=== PATIENT | female | born 1950 | race Caucasian/White ===

== ENCOUNTER 2016-10-09 11:35 | Outpatient (CLI) ==
[2014-01-31 00:14] VITALS: BMI 48.0
[2016-10-09 12:19] LABS: BILIRUBIN,URINE Negative (NEGATIVE); KETONES,URINE Negative (NEGATIVE); LEUKOCYTE ESTERASE ,URINE Negative (NEGATIVE); NITRITE,URINE Negative (NEGATIVE); PROTEIN,URINE Negative (NEGATIVE); URINE, BLOOD Trace-intact (NEGATIVE)
[2016-10-09 12:24] LABS: ADD URINE MICROSCOPIC YES
== END 2016-10-09 11:36 | disposition home or self-care (01) ==
LOC: LAB 11:35
PROVIDERS: ATTEND Emergency Medicine
DX: R39.15 Urgency of urination (principal)
CPT/HCPCS: 81001

== ENCOUNTER 2017-03-26 16:24 | Outpatient (CLI) ==
[2014-01-31 00:14] VITALS: BMI 48.0
[2017-03-26 16:40] LABS: BILIRUBIN,URINE Negative (NEGATIVE); KETONES,URINE Negative (NEGATIVE); LEUKOCYTE ESTERASE ,URINE Negative (NEGATIVE); NITRITE,URINE Negative (NEGATIVE); PH,URINE 5.5 (5-9); PROTEIN,URINE 1+ (NEGATIVE); URINE, BLOOD Negative (NEGATIVE)
[2017-03-26 16:46] LABS: ADD URINE MICROSCOPIC YES
== END 2017-03-26 16:25 | disposition home or self-care (01) ==
LOC: LAB 16:24
PROVIDERS: ATTEND Emergency Medicine
DX: R35.0 Frequency of micturition (principal)
CPT/HCPCS: 81001

== ENCOUNTER 2017-03-28 09:53 | Outpatient (CLI) ==
[2014-01-31 00:14] VITALS: BMI 48.0
--- NOTE | 2017-03-28 10:43 | CT ---
EXAM: CT of the abdomen pelvis without contrast History: Generalized abdominal pain. Comparison: CT abdomen 10/12/2008 Technique: Multiplanar CT images through the abdomen pelvis were obtained without the administratio n of IV contrast Findings: There is some motion artifact. Lung bases are free of consolidation. No acute osseous a bnormalities. Severe degenerate changes of the lumbar spine. Status post cholecystectomy. Calcified granulomas seen within the liver and spleen. There is atrop hy of the pancreas. No peripancreatic inflammation. 2.3 cm left adrenal adenoma. Right adrenal gl and is unremarkable. The appendix is normal. No renal stones and no hydronephrosis. No ureteral c alculi. No bowel obstruction. No bladder wall thickening. Uterus is not seen. Scattered colonic stool. Colonic diverticulosis. Inflammation and focal wall thickening of the proximal sigmoid colo n. No free air and no abscess. Impression: 1. Acute diverticulitis of the proximal sigmoid colon. No abscess. 2. Benign left adrenal adenoma. 3. Old granulomatous disease. 4. Severe degenerative changes of the lumbar spine.
== END 2017-03-28 09:54 | disposition home or self-care (01) ==
LOC: RAD 09:53
PROVIDERS: ATTEND Emergency Medicine
DX: R10.84 Generalized abdominal pain (principal)

== ENCOUNTER 2017-04-03 09:42 | Outpatient (CLI) ==
[2014-01-31 00:14] VITALS: BMI 48.0
[2017-04-03 10:18] LABS: BASOPHILS % (AUTO) 0.6 % (0.0-3.0); EOSINOPHILS # (AUTO) 0.1 K/ul (0.0-0.7); EOSINOPHILS % (AUTO) 1.9 % (0.0-7.0); HEMOGLOBIN 13.8 g/dl (12.0-16.0); IMMATURE GRANULOCYTE % (AUTO) 0.3 % (0.0-5.0); LYMPHOCYTES # (AUTO) 2.6 K/uL (0.60-3.4); LYMPHOCYTES % (AUTO) 35.4 (10.0-50.0); MEAN CORPUSCULAR HEMOGLOBIN 29.5 pg (27.0-31.0); MEAN CORPUSCULAR HGB CONC 32.9 (31.8-35.4); MEAN CORPUSCULAR VOLUME 89.7 fl (81.0-99.0); MONOCYTES # (AUTO) 0.5 K/uL (0.4-2.0); MONOCYTES % (AUTO) 6.7 (0-10); NEUTROPHILS % (AUTO) 55.1; PLATELET COUNT 249 10^3/uL (140-440); RED BLOOD COUNT 4.68 10^6/ul (4.20-5.40); WHITE BLOOD COUNT 7.21 K/ul (4.6-10.2)
[2017-04-03 11:05] LABS: ALBUMIN 3.6 g/dL (3.4-5.0); ALBUMIN/GLOBULIN RATIO 1.13; ANION GAP 13.3; BILIRUBIN,TOTAL 0.55 mg/dL (0.00-1.20); BUN/CREATININE RATIO 22.54; CALCIUM 9.7 mg/dL (8.2-10.2); CHOL/HDL RATIO 2.4 (4.5-5.5); CREATININE 1.02 mg/dL (0.60-1.30); POTASSIUM 4.3 mmol/L (3.5-5.10); TOTAL PROTEIN 6.8 g/dL (5.8-8.1)
== END 2017-04-03 09:43 | disposition home or self-care (01) ==
LOC: LAB 09:42
PROVIDERS: ATTEND Emergency Medicine
DX: E11.9 Type 2 diabetes mellitus without complications (principal); I10 Essential (primary) hypertension
CPT/HCPCS: 36415; 80053; 80061; 83036; 84443; 85025

== ENCOUNTER 2017-08-22 12:54 | Outpatient (CLI) | payer OTHER ==
[2014-01-31 00:14] VITALS: BMI 48.0
--- NOTE | 2017-08-24 08:44 | MAMMO ---
EXAM: Bilateral digital screening mammogram (2-D and 3-D) History: Screening Comparison: Bilateral mammogram 08/04/2016 Findings: MLO and CC views of bilateral breasts demonstrate a mildly fatty replaced breast parenchym a. CAD was reviewed by the radiologist. Tomosynthesis was performed. Stable benign bilateral breas t calcifications. There are no dominant masses, no suspicious microcalcifications and no architectur al distortions Impression: Benign stable mammogram. Recommend followup routine screening mammography in 1 year. BIRADS 2
== END 2017-08-22 12:55 | disposition home or self-care (01) ==
LOC: RAD 12:54
PROVIDERS: ATTEND Emergency Medicine
DX: Z12.31 Encounter for screening mammogram for malignant neoplasm of breast (principal)
CPT/HCPCS: 77067

== ENCOUNTER 2017-09-18 16:05 | Outpatient (CLI) ==
[2014-01-31 00:14] VITALS: BMI 48.0
== END 2017-09-18 16:06 | disposition home or self-care (01) ==
LOC: LAB 16:05
PROVIDERS: ATTEND Emergency Medicine
DX: E11.9 Type 2 diabetes mellitus without complications (principal); E78.5 Hyperlipidemia, unspecified; I10 Essential (primary) hypertension
CPT/HCPCS: 36415; 80053; 80061; 83036; 84443; 85025

== ENCOUNTER 2017-12-27 10:52 | Outpatient (CLI) | payer OTHER ==
[2014-01-31 00:14] VITALS: BMI 48.0
== END 2017-12-27 10:53 | disposition home or self-care (01) ==
LOC: RHC-LAB 10:52
PROVIDERS: ATTEND Emergency Medicine
DX: E11.9 Type 2 diabetes mellitus without complications (principal); I10 Essential (primary) hypertension; E78.5 Hyperlipidemia, unspecified; E66.9 Obesity, unspecified
CPT/HCPCS: 36415; 80053; 80061; 83036; 84443; 85025

== ENCOUNTER 2018-03-12 09:53 | Outpatient (CLI) ==
[2014-01-31 00:14] VITALS: BMI 48.0
== END 2018-03-12 09:54 | disposition home or self-care (01) ==
LOC: LAB 09:53
PROVIDERS: ATTEND Emergency Medicine
DX: E11.9 Type 2 diabetes mellitus without complications (principal); E78.5 Hyperlipidemia, unspecified; I10 Essential (primary) hypertension
CPT/HCPCS: 36415; 80053; 80061; 83036; 84443; 85025

== ENCOUNTER 2018-07-01 09:11 | Outpatient (CLI) | payer OTHER ==
[2014-01-31 00:14] VITALS: BMI 48.0
== END 2018-07-01 09:12 | disposition home or self-care (01) ==
LOC: LAB 09:11
PROVIDERS: ATTEND Family Medicine
DX: E11.9 Type 2 diabetes mellitus without complications (principal); E55.9 Vitamin D deficiency, unspecified; I10 Essential (primary) hypertension; Z86.39 Personal history of other endocrine, nutritional and metabolic disease
CPT/HCPCS: 36415; 80053; 82043; 82306; 83036

== ENCOUNTER 2020-09-09 16:30 | Inpatient (IN) ==
--- NOTE | 2020-09-09 17:11 | ED.PDOC ---
General ED Provider: Dr. AMRITA IGLESIAS Chief Complaint: Abnormal Labs Stated Complaint: Weakness, chronic diarrhea; Apparently had out patient lab in anticipation of knee surgery. She was called by Dr Panda offselma and advise her labs were abnormal and to go To ER. Dr Herring advised that orthopedic surgeon advised Her WBC count was elevated Time Seen by Physician: 17:00 Mode of Arrival: Ambulance Information Source: Patient Exam Limitations: Clinical condition Primary Care Provider: ROBERTO HERRING Nursing and Triage Documentation Reviewed and Agree: Yes Does patient meet sepsis criteria?: No System Inflammatory Response Syndrome: Not Applicable Sepsis Protocol: For patient's 13 years and over: Temp is 96.8 and below OR 101 and greater Pulse >90 BPM Resp >20/minute Acutely Altered Mental Status Are patient's symptoms suggestive of a new infection, such as: -Pneumonia -Skin, Soft Tissue -Endocarditis -UTI -Bone, Joint Infection -Implantable Device -Acute Abdominal Infection -Wound Infection -Meningitis -Blood Stream Catheter Infection -Unknown GI Complaint Exam Vomiting/Diarrhea Complaint/Exam Onset/Duration: several month of diarrhea Symptoms Are: Still present Episodes of Vomiting over last 24 Hours: 0 Episodes of Diarrhea Over Last 24 Hours: 2 Initial Severity: Moderate Current Severity: Mild Character of Diarrhea: Reports Malodorous Aggravating: Reports Food and Liquids Alleviating: Reports None Associated Signs and Symptoms: Reports Dizziness, Light-headedness and Melena Last Bowel Movement: Earlier today Abdominal Findings: Present Other (Tenderness) Differential Diagnoses: Dehydration, Viral Gastroenteritis and Pancreatitis Review of Systems Review Of Systems Constitutional: Reports No symptoms and Weakness Eyes: Reports No symptoms Ears, Nose, Mouth, Throat: Reports No symptoms Respiratory: Reports No symptoms Cardiac: Reports No symptoms GI: Reports Abdominal pain, Diarrhea, Poor appetite and Poor fluid intake : Reports No symptoms Musculoskeletal: Reports No symptoms Skin: Reports No symptoms Neurological: Reports No symptoms Endocrine: Reports No symptoms Hematologic/Lymphatic: Reports No symptoms All Other Systems: Reviewed and Negative [facility] Medical History (Updated 09/10/20 @ 08:04 by MEGGAN WINKLER) Arthritis Asthma Bronchitis Cataract Diabetes mellitus Hyperlipidemia Hypertension Irritable bowel syndrome Left breast lump Microalbuminuria Polycystic ovaries Family History FATHER Cancer MATERNAL GRANDMOTHER Cancer MATERNAL GRANDFATHER Cancer PATERNAL GRANDMOTHER Cerebrovascular accident Hypertension PATERNAL GRANDFATHER Hypertension Social History (Updated 09/09/20 @ 17:09 by MINI FRANKS RN) Smoking and tobacco status: Former smoker Surgical History (Updated 09/10/20 @ 08:04 by MEGGAN WINKLER) Cataract extraction and insertion of intraocular lens History of section History of hysterectomy History of joint surgery History of musculoskeletal system surgery History of oophorectomy History of surgery History of surgery on integumentary structure Status post cholecystectomy Status post hysterectomy Female Reproductive History Menstrual Hx Hysterectomy: Yes Hx Tubal Ligation: No Physical Exam Physical Exam Appearance: Reports Well-appearing, No pain distress and Obese Ill-appearing: Mild Pain Distress: Mild Eyes: Reports RENNY, EOMI, Conjunctiva clear, Conjunctiva inflammed and Conjunctiva pale ENT: Reports Ears normal, Nose normal and Oropharynx normal Neck: Supple Respiratory: Reports Airway patent, Breath sounds clear, Breath sounds equal and Breath sounds diminished Cardiovascular: Reports RRR GI/: Reports Soft, Tender and Bowel sounds hypoactive Musculoskeletal: Reports Normal strength, ROM intact, No edema and No calf tenderness Skin: Reports Warm and Dry Neurological: Reports Sensation intact, Motor intact, Reflexes intact, Cranial nerves intact, Alert and Oriented Psychiatric: Reports Affect appropriate, Mood appropriate and Anxious Interpretation EKG Interpretation Time of EKG #1: 18:07 Rate: Normal Rhythm: Sinus ST Segment: Other Interpretation: Non Specific ST abnormality/Prolonged QT Critical Care Note Critical Care Note Total Critical Care Time (mins): 0 Course Course Hematology/Chemistry: 09/11/20 04:50 09/11/20 04:50 Orders, Labs, Meds: Lab Review 09/09/20 09/09/20 09/09/20 10:00 17:32 17:32 WBC 14.33 H RBC 4.11 L Hgb 12.0 Hct 36.5 L MCV 88.8 MCH 29.2 MCHC 32.9 RDW Coeff of Patsy 12.4 Plt Count 474 H Immature Gran % (Auto) 0.8 Neut % (Auto) 69.0 Lymph % (Auto) 21.9 [place] % (Auto) 7.0 Eos % (Auto) 1.0 Baso % (Auto) 0.3 Neut # (Auto) 9.9 H Lymph # (Auto) 3.1 [place] # (Auto) 1.0 Eos # (Auto) 0.2 Baso # (Auto) 0.0 Immature Gran # (Auto) 0.1 ESR Sodium 127.6 L Potassium 3.95 Chloride 94.1 L Carbon Dioxide 19.7 L Anion Gap 17.75 BUN 54.6 H Creatinine 2.91 H Estimated GFR (MDRD) 16.00 BUN/Creatinine Ratio 18.76 Glucose 136.9 H Calcium 10.72 H Magnesium 1.56 L Total Bilirubin 0.47 AST 29.8 ALT 23.2 Alkaline Phosphatase 255.5 H Total Creatine Kinase 42.4 Total Protein 7.53 Albumin 3.60 Globulin 3.93 Albumin/Globulin Ratio 0.91 Amylase 45.0 Lipase 75.9 Urine Color Urine Clarity Urine pH Ur Specific [place] Urine Protein Urine Glucose (UA) Urine Ketones Urine Blood Urine Nitrite Urine Bilirubin Urine Urobilinogen Ur Leukocyte Esterase Urine Microscopic WBC Ur Squamous Epith Cells Urine Bacteria Adenovirus (PCR) Not detected B. pertussis DNA (PCR) Not detected B.parapertussis DNA PCR Not detected C. pneumoniae DNA (PCR) Not detected Coronavirus OC43 (PCR) Not detected Coronavirus HKU1 (PCR) Not detected Coronavirus 229E (PCR) Not detected Coronavirus NL63 (PCR) Not detected Human Metapneumovir PCR Not detected Influenza Type A (PCR) Not detected Influenza B (RT-PCR) Not detected M. pneumoniae (PCR) Not detected Parainfluenza 1 (PCR) Not detected Parainfluenza 2 (PCR) Not detected Parainfluenza 3 (PCR) Not detected Parainfluenza 4 (PCR) Not detected RSV (PCR) Not detected Entero/Rhino (PCR) Not detected SARS-CoV-2 (PCR) Not detected 09/09/20 09/09/20 17:32 18:30 WBC RBC Hgb Hct MCV MCH MCHC RDW Coeff of Patsy Plt Count Immature Gran % (Auto) Neut % (Auto) Lymph % (Auto) [place] % (Auto) Eos % (Auto) Baso % (Auto) Neut # (Auto) Lymph # (Auto) [place] # (Auto) Eos # (Auto) Baso # (Auto) Immature Gran # (Auto) ESR 92 H Sodium Potassium Chloride Carbon Dioxide Anion Gap BUN Creatinine Estimated GFR (MDRD) BUN/Creatinine Ratio Glucose Calcium Magnesium Total Bilirubin AST ALT Alkaline Phosphatase Total Creatine Kinase Total Protein Albumin Globulin Albumin/Globulin Ratio Amylase Lipase Urine Color Yellow Urine Clarity Clear Urine pH 5.0 Ur Specific [place] <=1.005 Urine Protein Negative Urine Glucose (UA) Trace H Urine Ketones Negative Urine Blood Trace-intact H Urine Nitrite Negative Urine Bilirubin Negative Urine Urobilinogen 0.2 Ur Leukocyte Esterase Negative Urine Microscopic WBC 2-5 Ur Squamous Epith Cells 0-2 Urine Bacteria Trace Adenovirus (PCR) B. pertussis DNA (PCR) B.parapertussis DNA PCR C. pneumoniae DNA (PCR) Coronavirus OC43 (PCR) Coronavirus HKU1 (PCR) Coronavirus 229E (PCR) Coronavirus NL63 (PCR) Human Metapneumovir PCR Influenza Type A (PCR) Influenza B (RT-PCR) M. pneumoniae (PCR) Parainfluenza 1 (PCR) Parainfluenza 2 (PCR) Parainfluenza 3 (PCR) Parainfluenza 4 (PCR) RSV (PCR) Entero/Rhino (PCR) SARS-CoV-2 (PCR) Orders Category Date Time Status ADMIT PATIENT INPATIENT .TO MEDSURG (MONITORED BED) ADMISSION 09/09/20 19:17 Active EKG-(ED ONLY) Stat CARDIO 09/09/20 17:11 Completed METERED DOSE INHALATION Routine CARDIO 09/09/20 19:06 Active ACTIVITY .Complete BR CARE 09/09/20 19:02 Active BLOOD GLUCOSE MONITORING 0630,1100,1700,2100 CARE 09/09/20 19:03 Active INTAKE & OUTPUT Q8HR CARE 09/09/20 19:02 Active INTAKE & OUTPUT Q8HR CARE 09/09/20 19:02 Completed TELEMETRY MONITORING TELE CARE 09/09/20 19:17 Active VITAL SIGNS Q4HR CARE 09/09/20 19:02 Completed VITAL SIGNS Q8HR CARE 09/09/20 19:02 Completed REGULAR DIET DIETARY 09/09/20 Breakfast Ordered IV [ED IV/MEDIPORT/POWERPORT] .ONCE EMERGENCY 09/09/20 19:00 Active AMYLASE Stat LAB 09/09/20 17:32 Completed CBC W/ AUTO DIFF DAILY@0600 LAB 09/10/20 04:45 Completed CBC W/ AUTO DIFF DAILY@0600 LAB 09/11/20 04:50 Completed CBC W/ AUTO DIFF Stat LAB 09/09/20 17:32 Completed COMPREHENSIVE METABOLIC PANEL DAILY@0600 LAB 09/10/20 04:45 Completed COMPREHENSIVE METABOLIC PANEL DAILY@0600 LAB 09/11/20 04:50 Completed COMPREHENSIVE METABOLIC PANEL Stat LAB 09/09/20 17:32 Completed CPK [CREATINE KINASE] Stat LAB 09/09/20 17:32 Completed ESR Stat LAB 09/09/20 17:32 Completed LIPASE Stat LAB 09/09/20 17:32 Completed MAGNESIUM Stat LAB 09/09/20 17:32 Completed OCCULT BLOOD, STOOL Stat LAB 09/09/20 19:17 Uncollected UA [URINALYSIS C & S IF INDICATED] Stat LAB 09/09/20 18:30 Completed 0.9 % Sodium Chloride [Saline Flush] MEDS 09/09/20 19:00 Active 1 syr IVF PRN PRN Albuterol Inhaler(with Spacer) [Ventolin Hfa (Per Puff- MEDS 09/09/20 19:05 Active with Spacer)] 1 puff IH TID PRN Albuterol Sulfate 0.042% Neb [Albuterol 0.042% Neb] MEDS 09/09/20 19:05 Active 1.25 mg NEB TID PRN Alprazolam [Xanax] MEDS 09/09/20 19:30 Active 0.5 mg PO BID Aspirin [Aspirin Chewable] MEDS 09/10/20 08:30 Active 81 mg PO DAILYWM Glipizide [Glucotrol] MEDS 09/09/20 21:00 Discontinued 10 mg PO BID Hydrocodone Bit/Acetaminophen [[place] 5-325] MEDS 09/09/20 19:00 Active 1 tab PO Q6H PRN L.rhamn A-191-L.ac-B.monica-B.john [Probiotic] MEDS 09/09/20 19:15 Discontinued 1 cap PO DAILY Losartan Potassium [Cozaar] MEDS 09/10/20 09:00 Active 100 mg PO DAILY Montelukast Sodium [Singulair] MEDS 09/10/20 09:00 Discontinued 10 mg PO DAILY Ondansetron HCl/Pf [Zofran 4 mg/2 ml] MEDS 09/09/20 19:00 Active 4 mg IVP Q6H PRN Sodium Chloride 0.9% [Sodium Chloride] 1,000 ml MEDS 09/09/20 19:00 Discontinued IV BOLUS Trazodone HCl [Desyrel] MEDS 09/09/20 21:00 Active 50 mg PO BEDTIME RESUSCITATION STATUS Routine OTHERS 09/09/20 19:[address] ABDOMEN/PELVIS WO CONTRAST Stat RADS 09/09/20 17:[address] CHEST W/O CONTRAST Stat RADS 09/09/20 17:21 Completed Medications Generic Name Dose Route Start Last Admin Trade Name Freq PRN Reason Stop Dose Admin Hydrocodone Bitart/Acetaminophen 1 tab 09/09/20 19:00 09/11/20 08:38 Hydrocodone Bit/Acetaminophen 5/325 Mg Tablet PO 1 tab Q6H PRN Administration Pain Albuterol Sulfate 1.25 mg 09/09/20 19:05 Albuterol Sulfate 0.042% Vial.Neb NEB TID PRN dyspnea Albuterol Sulfate 1 puff 09/09/20 19:05 Albuterol Sulfate (Ventolin Hfa) 18 Gm 1 Puff With Spacer IH TID PRN wheezing and dyspnea Alprazolam 0.5 mg 09/09/20 19:30 09/11/20 08:38 Alprazolam 0.5 Mg Tablet PO 0.5 mg BID YUDI Administration Aspirin 81 mg 09/10/20 08:30 09/11/20 08:38 Aspirin 81 Mg Tab.Chew PO 81 mg DAILYWM YUDI Administration Enoxaparin Sodium 30 mg 09/12/20 09:00 Enoxaparin Sodium 30 Mg/0.3 Ml Syr SUBCUT DAILY YUDI Glipizide 10 mg 09/10/20 08:30 09/11/20 08:38 Glipizide 5 Mg Tablet PO 10 mg BIDWM YUDI Administration Sodium Chloride 1,000 mls @ 125 mls/hr 09/09/20 22:00 09/10/20 22:08 Sodium Chloride IV 125 mls/hr .Q8H YUDI Administration CEFTRIAXONE/D5W 1 GM PREMIX 1 gm in 50 mls @ 75 mls/hr 09/10/20 09:00 09/11/20 08:45 Rocephin 1 Gm/50 Ml D5w IV 09/13/20 08:59 75 mls/hr DAILY YUDI Administration Insulin Human Regular 0 unit 09/09/20 21:45 09/10/20 20:53 Insulin Regular, Human 100 Unit/Ml (3ml) Vial SUBCUT 3 unit PRN PRN Administration Hyperglycemia Protocol Losartan Potassium 100 mg 09/10/20 09:00 09/11/20 08:38 Losartan Potassium 100 Mg Tablet PO 100 mg DAILY YUDI Administration Montelukast Sodium 10 mg 09/09/20 22:30 09/10/20 20:36 Montelukast Sodium 10 Mg Tablet PO 10 mg BEDTIME YUDI Administration Non-Formulary Medication 2 cap 09/11/20 09:00 09/11/20 08:39 L.Rhamn A-191-L.Ac-B.Monica-B.John [Probiotic] PO 2 cap DAILY YUDI Administration Ondansetron HCl 4 mg 09/09/20 19:00 Ondansetron Hcl/Pf 4 Mg/2 Ml Sdv IVP Q6H PRN Nausea / Vomiting Sodium Chloride 1 syr 09/09/20 19:00 0.9% Sodium Chloride 10 Ml Disp.Syrin IVF PRN PRN To flush IV Trazodone HCl 50 mg 09/09/20 21:00 09/10/20 20:36 Trazodone Hcl 50 Mg Tablet PO 50 mg BEDTIME YUDI Administration Discontinued Medications Generic Name Dose Route Start Last Admin Trade Name Freq PRN Reason Stop Dose Admin Enoxaparin Sodium 40 mg 09/10/20 09:00 09/11/20 08:39 Enoxaparin Sodium 40 Mg/0.4 Ml Syr SUBCUT 40 mg DAILY YUDI Administration Glipizide 10 mg 09/09/20 21:00 09/09/20 22:32 Glipizide 5 Mg Tablet PO 10 mg BID YUDI Administration Sodium Chloride 1,000 mls @ 1,000 mls/hr 09/09/20 19:00 09/09/20 20:14 Sodium Chloride IV 09/09/20 19:59 1,000 mls/hr BOLUS STA Administration Montelukast Sodium 10 mg 09/10/20 09:00 Montelukast Sodium 10 Mg Tablet PO DAILY YUDI Non-Formulary Medication 1 cap 09/09/20 19:15 09/10/20 10:09 L.Rhamn A-191-L.Ac-B.Monica-B.John [Probiotic] PO 1 cap DAILY YUDI Administration Vital Signs: Temp Pulse Resp BP Pulse Ox 09/09/20 16:36 97.6 F 75 18 114/54 L 99 Discharge Plan Discharge Patient Disposition: ADMITTED INPATIENT Discharge Problem: Chronic diarrhea, Laboratory test result abnormal, Acute kidney injury superimposed on chronic kidney disease, Dehydration, Bilateral knee pain ED Provider: AMRITA IGLESIAS Condition: Stable Physician Progress Note: []
[2020-09-09 17:39] LABS: BASOPHILS % (AUTO) 0.3 % (0.0-3.0); EOSINOPHILS # (AUTO) 0.2 K/ul (0.0-0.7); HEMATOCRIT 36.5 % (37.0-47.0); IMMATURE GRANULOCYTE # (AUTO) 0.1 (0.0-1.0); IMMATURE GRANULOCYTE % (AUTO) 0.8 % (0.0-5.0); LYMPHOCYTES # (AUTO) 3.1 K/uL (0.60-3.4); LYMPHOCYTES % (AUTO) 21.9 (10.0-50.0); MEAN CORPUSCULAR HEMOGLOBIN 29.2 pg (27.0-31.0); MEAN CORPUSCULAR HGB CONC 32.9 (31.8-35.4); MEAN CORPUSCULAR VOLUME 88.8 fl (81.0-99.0); NEUTROPHILS # (AUTO) 9.9 K/ul (2.0-6.9); PLATELET COUNT 474 10^3/uL (140-440); RDW COEFFICIENT OF VARIATION 12.4 % (11.6-14.8); RED BLOOD COUNT 4.11 10^6/ul (4.20-5.40); WHITE BLOOD COUNT 14.33 K/ul (4.6-10.2)
[2020-09-09 17:51] LABS: ALANINE AMINOTRANSFERASE 23.2 U/L (0-35); ALBUMIN 3.6 g/dL (3.5-5.0); ALKALINE PHOSPHATASE 255.5 U/L (53-141); ASPARTATE AMINO TRANSFERASE 29.8 U/L (14-36); BILIRUBIN,TOTAL 0.47 mg/dL (0.2-1.3); BLOOD UREA NITROGEN 54.6 mg/dL (7-17); CALCIUM 10.72 mg/dL (8.4-10.2); CARBON DIOXIDE 19.7 mmol/L (22-30.0); CHLORIDE 94.1 mmol/L (98-107); CREATINE KINASE 42.4 U/L (30-135); CREATININE 2.91 mg/dL (0.60-1.30); GLUCOSE 136.9 mg/dL (74-106); LIPASE 75.9 U/L (23-300); MAGNESIUM 1.56 mg/dL (1.6-2.3); POTASSIUM 3.95 mmol/L (3.5-5.1); SODIUM 127.6 mmol/L (134.5-145); TOTAL PROTEIN 7.53 g/dL (6.3-8.2)
[2020-09-09 18:15] LABS: ERYTHROCYTE SEDIMENTATION RATE 92 mm/hr (0-20)
--- NOTE | 2020-09-09 18:31 | CT ---
EXAM: CT chest without contrast HISTORY: Leukocytosis, fever TECHNIQUE: Multi-slice transaxial helical with coronal and sagittal reformed images CONTRAST: None COMPARISON: None FINDINGS: A hypodense nodule in the right thyroid lobe is 1.7 cm. The ascending aorta is minimally e ctatic to 31 mm. The aortic arch and descending aorta have normal caliber. The heart size is normal . No pericardial or pleural effusions. Minimal dependent atelectasis is noted. A calcified granulo ma is noted in the left lower lobe. No acute consolidation. No lymphadenopathy. Calcified granulomas are noted in the otherwise normal spleen. There is minimal focal fat in the lef t hepatic lobe adjacent to the falciform ligament. Additional calcified granulomas are noted in the liver. A left adrenal nodule is 2.6 cm with low attenuation. A simple cyst arises exophytically fro m the interpolar region of the left kidney. The pancreas is atrophic. The solid organs otherwise no rmal in their visualized portions of the upper abdomen. The gallbladder is surgically absent without biliary dilatation. The bones are free of suspicious osteolytic or osteoblastic lesions. A left reverse shoulder prosthe tic is in place. IMPRESSION: 1. No acute cardiopulmonary disease. 2. Hypodense nodule in the right thyroid lobe measuring 1.7 cm. [facility]. 3. Left reverse shoulder prosthetic in place.
--- NOTE | 2020-09-09 18:34 | CT ---
EXAM: CT abdomen and pelvis without contrast HISTORY: Leukocytosis, fever, abdominal pain, abdominal cramping TECHNIQUE: Multi-slice transaxial helical with coronal and sagittal reformed images COMPARISON: CT chest from FINDINGS: The lung bases are free of acute airspace or interstitial opacities. The heart size is nor mal. There are no pericardial or pleural effusions. There is minimal focal fat in the left hepatic lobe adjacent to the falciform ligament. No hepatic l esions are calcified granulomas are noted in the liver and spleen. The gallbladder is surgically abs ent without biliary dilatation. A left adrenal nodule is 2.6 cm. This has low attenuation. The right adrenal gland is normal. The pancreas maintains normal attenuation. No duodenal diverticula. There are multiple tiny probable hemorrhagic or proteinaceous bilateral renal cysts. No ureteral pel vicaliectasis. The nonopacified bladder is grossly normal. The uterus is surgically absent and ther e are no adnexal masses. The appendix is normal. Small bowel loops contain gas without distension. Diverticula arise from la rge bowel without CT evidence of diverticulitis. No lymphadenopathy or ascites. The bones are free of suspicious osteolytic or osteoblastic lesions. IMPRESSION: 1. Minimal focal fat in the left hepatic lobe. 2. Multiple probable bilateral hemorrhagic or proteinaceous renal cysts. 3. Left adrenal adenoma. 4. Old granulomas disease. 5. ASCVD. 6. Colonic diverticulosis without CT evidence of diverticulitis. 7. Normal appendix. Nonobstructive intestinal gas pattern.
[2020-09-09 18:41] LABS: BILIRUBIN,URINE Negative (NEGATIVE); CLARITY,URINE Clear (CLEAR); COLOR,URINE Yellow (YELLOW); GLUCOSE, URINE (UA) Trace (NEGATIVE); KETONES,URINE Negative (NEGATIVE); LEUKOCYTE ESTERASE ,URINE Negative (NEGATIVE); NITRITE,URINE Negative (NEGATIVE); PROTEIN,URINE Negative (NEGATIVE); URINE, BLOOD Trace-intact (NEGATIVE); UROBILINOGEN,URINE 0.2 (0.2)
[2020-09-09 18:45] LABS: BACTERIA,URINE TRACE (NOT PRESENT); SQUAMOUS EPITHELIAL CELL,UR 0-2 (0-5)
[2020-09-09] MEDS ORDERED: ZOFRAN 4 MG/2 ML IVP PRN (19:00)
[2020-09-09] MEDS ORDERED: SODIUM CHLORIDE 1,000 ML IV STA (19:00)
[2020-09-09] MEDS ORDERED: VENTOLIN HFA (PER PUFF-WITH SPACER) IH PRN (19:05)
[2020-09-09] MEDS ORDERED: ALBUTEROL 0.042% NEB NEB PRN (19:05)
[2020-09-09] MEDS: XANAX PO SCH ×2 (20:15→22:07)
[2020-09-09] MEDS ORDERED: GLUCOTROL PO SCH (21:00)
[2020-09-09] MEDS: DESYREL PO SCH (22:32)
[2020-09-09] MEDS: SINGULAIR PO SCH (22:33)
[2020-09-09] MEDS: SODIUM CHLORIDE 1,000 ML IV SCH (22:33)
[2020-09-09] MEDS: NORCO 5-325 PO PRN (22:39)
[2020-09-09 22:49] VITALS: BMI 38.7
[2020-09-10 05:14] LABS: BASOPHILS % (AUTO) 0.3 % (0.0-3.0); EOSINOPHILS # (AUTO) 0.1 K/ul (0.0-0.7); EOSINOPHILS % (AUTO) 1.4 % (0.0-7.0); HEMATOCRIT 31.5 % (37.0-47.0); HEMOGLOBIN 10.5 g/dl (12.0-16.0); IMMATURE GRANULOCYTE # (AUTO) 0.1 (0.0-1.0); IMMATURE GRANULOCYTE % (AUTO) 0.9 % (0.0-5.0); LYMPHOCYTES # (AUTO) 2.4 K/uL (0.60-3.4); LYMPHOCYTES % (AUTO) 23.2 (10.0-50.0); MEAN CORPUSCULAR HEMOGLOBIN 29.7 pg (27.0-31.0); MEAN CORPUSCULAR HGB CONC 33.3 (31.8-35.4); MONOCYTES # (AUTO) 0.9 K/uL (0.4-2.0); MONOCYTES % (AUTO) 8.9 (0-10); NEUTROPHILS # (AUTO) 6.8 K/ul (2.0-6.9); NEUTROPHILS % (AUTO) 65.3 % (42.2-75.2); PLATELET COUNT 385 10^3/uL (140-440); RDW COEFFICIENT OF VARIATION 12.4 % (11.6-14.8); RED BLOOD COUNT 3.54 10^6/ul (4.20-5.40); WHITE BLOOD COUNT 10.33 K/ul (4.6-10.2)
[2020-09-10 05:33] LABS: ALANINE AMINOTRANSFERASE 18.4 U/L (0-35); ALBUMIN 3.02 g/dL (3.5-5.0); ALKALINE PHOSPHATASE 202.4 U/L (53-141); ASPARTATE AMINO TRANSFERASE 26.3 U/L (14-36); BILIRUBIN,TOTAL 0.4 mg/dL (0.2-1.3); CALCIUM 9.88 mg/dL (8.4-10.2); CARBON DIOXIDE 18.7 mmol/L (22-30.0); CHLORIDE 98.6 mmol/L (98-107); CREATININE 2.9 mg/dL (0.60-1.30); POTASSIUM 3.52 mmol/L (3.5-5.1); SODIUM 129.6 mmol/L (134.5-145); TOTAL PROTEIN 6.62 g/dL (6.3-8.2)
[2020-09-10] MEDS: SODIUM CHLORIDE 1,000 ML IV SCH ×3 (05:51→22:08)
[2020-09-10] MEDS: [UNRECOGNIZED DRUG - OTHER] PO SCH ×2 (07:57→10:09)
[2020-09-10] MEDS ORDERED: JARDIANCE PO SCH (09:00)
[2020-09-10] MEDS ORDERED: MOBIC PO SCH (09:00)
[2020-09-10] MEDS ORDERED: SINGULAIR PO SCH (09:00)
[2020-09-10] MEDS: XANAX PO SCH ×2 (09:34→20:36)
[2020-09-10] MEDS: NORCO 5-325 PO PRN ×2 (09:34→18:10)
[2020-09-10] MEDS: ROCEPHIN 1 GM/50 ML D5W 1 GM/50 ML BAG IV SCH (09:34)
[2020-09-10] MEDS: COZAAR PO SCH (09:34)
[2020-09-10] MEDS: GLUCOTROL PO SCH ×2 (09:35→18:08)
[2020-09-10] MEDS: ASPIRIN CHEWABLE PO SCH (09:35)
[2020-09-10] MEDS: LOVENOX SUBCUT SCH (09:42)
--- NOTE | 2020-09-10 09:47 | PCM.PROG ---
Attending Provider: ATTENDING PROVIDER: Dr. ROBERTO SIU DATE OF SERVICE: 09/10/20 SUBJECTIVE: This 70 year old /WHITE F was hospitalized 09/09/20 with abdominal discomfort, diarrhea, dehydration and abnormal labs that were done for Preop by Dr. Garcia which were reported to me and advised to go to ER. The patient has acute renal failure. REVIEW OF SYSTEMS: CONSTITUTIONAL: No night sweats. No fatigue, malaise, lethargy. No fever or chills. HEENT: Eyes: No visual changes. No eye pain. No eye discharge. ENT: No runny nose. No epistaxis. No sinus pain. No odynophagia. No congestion. RESPIRATORY: No cough, no congestion. No hemoptysis. No shortness of breath. CARDIOVASCULAR: No angina symptoms. No CHF symptoms. No atypical chest pain for CAD. No palpitations. No orthopnea.. GASTROINTESTINAL: Abdominal discomfort. No nausea or vomiting. Diarrhea. No hematemesis. No hematochezia. Weight loss. GENITOURINARY: No urgency. No frequency. No dysuria. No hematuria. No obstructive symptoms. No discharge. No pain. No significant abnormal bleeding. MUSCULOSKELETAL: No musculoskeletal pain; no joint swelling. Moderate to severe right knee pain where she is not able to transfer and requires help for past several weeks. The patient has self directed care. Very poor on followups and recommendations. NEUROLOGICAL: Awake, alert, oriented to time, place and person. No headache. No neck pain. No syncope. No seizures. No dizziness. PSYCHIATRIC: Not anxious. No depression. No suicidal thoughts. No homicidal thoughts. SKIN: No rash. No lesions. No wounds. ENDOCRINE: No unexplained weight loss. No weight gain. HEMATOLOGIC/LYMPHATIC: No anemia. No purpura. No petechiae. No prolonged or excessive bleeding. No palpable lymph nodes. PHYSICAL EXAMINATION: GENERAL: The patient is awake, alert and oriented, lying in bed in no distress. VITAL SIGNS: Temperature 98 F, Pulse 78, Respiratory Rate 18, BP 108/61, Pulse Ox 94% HEENT: Head normocephalic, atraumatic. Eyes: Extraocular muscles are intact. Pupils are equal, round and reactive to light and accommodation. Ears: No lesions. Nose appeared normal. Throat: No exudate or erythema. NECK: Supple. No JVD, no carotid bruit. No lymphadenopathy or thyromegaly. LUNGS: Clear to auscultation. Percussion note normal. Chest symmetrical. HEART: S1, S2, no S3. No murmurs. No cyanosis or clubbing. No ascites. Pulses: Dorsalis pedis and posterior tibial pulses +1 to +2 both sides. ABDOMEN: Soft. Non-tender. Bowel sounds active. No CVA tenderness. No mass felt. EXTREMITIES: No edema. Full range of motion of all extremities, equal. NEUROLOGIC: No focal deficit. Cranial nerves II through XII are grossly intact. No headache, no double vision or headache. SKIN: Warm and dry. Intact. Turgor-Better than yesterday described by the ER doctor LYMPHATIC: No palpable lymph nodes/no lymphedema. MUSCULOSKELETAL: Normal joints with no swelling. Muscle tone is normal. LAB REVIEW: 09/10/20 04:45 09/10/20 04:45 09/10/20 04:45: Sodium 129.6 L, Potassium 3.52, Chloride 98.6, Carbon Dioxide 18.7 L, Anion Gap 15.82, BUN 53.0 H, Creatinine 2.90 H, Estimated GFR (MDRD) 16.00, BUN/Creatinine Ratio 18.27, Glucose 110.0 H, Calcium 9.88, Total Bilirubin 0.40, AST 26.3, ALT 18.4, Alkaline Phosphatase 202.4 H D, Total Protein 6.62, Albumin 3.02 L, Globulin 3.60, Albumin/Globulin Ratio 0.83 09/10/20 04:45: WBC 10.33 H, RBC 3.54 L, Hgb 10.5 L, Hct 31.5 L, MCV 89.0, MCH 29.7, MCHC 33.3, RDW Coeff of Patsy 12.4, Plt Count 385, Immature Gran % (Auto) 0.9, Neut % (Auto) 65.3, Lymph % (Auto) 23.2, [place] % (Auto) 8.9, Eos % (Auto) 1.4, Baso % (Auto) 0.3, Neut # (Auto) 6.8, Lymph # (Auto) 2.4, [place] # (Auto) 0.9, Eos # (Auto) 0.1, Baso # (Auto) 0.0, Immature Gran # (Auto) 0.1 09/09/20 22:15: Puncture Site Rb, Base Excess -5.6 L, O2 Saturation 94.9, ABG pH 7.40, ABG pCO2 31.0 L, ABG pO2 75.0 L, ABG HCO3 19.2 L, ABG Total CO2 20.2, Reuben Test +, Hemoglobin 1.4, Oxyhemoglobin 92.0 L, Carboxyhemoglobin 2.6 H, Total Hemoglobin 19.0 H, FiO2 % 21.0 09/09/20 18:30: Urine Color Yellow, Urine Clarity Clear, Urine pH 5.0, Ur Specific [place] <=1.005, Urine Protein Negative, Urine Glucose (UA) Trace H, Urine Ketones Negative, Urine Blood Trace-intact H, Urine Nitrite Negative, Urine Bilirubin Negative, Urine Urobilinogen 0.2, Ur Leukocyte Esterase Negative, Urine Microscopic WBC 2-5, Ur Squamous Epith Cells 0-2, Urine Bacteria Trace 09/09/20 17:32: ESR 92 H 09/09/20 17:32: Sodium 127.6 L, Potassium 3.95, Chloride 94.1 L, Carbon Dioxide 19.7 L, Anion Gap 17.75, BUN 54.6 H, Creatinine 2.91 H, Estimated GFR (MDRD) 16. 00, BUN/Creatinine Ratio 18.76, Glucose 136.9 H, Calcium 10.72 H, Magnesium 1.56 L, Total Bilirubin 0.47, AST 29.8, ALT 23.2, Alkaline Phosphatase 255.5 H, Total Creatine Kinase 42.4, Total Protein 7.53, Albumin 3.60, Globulin 3.93, Albumin/Globulin Ratio 0.91, Amylase 45.0, Lipase 75.9 09/09/20 17:32: WBC 14.33 H, RBC 4.11 L, Hgb 12.0, Hct 36.5 L, MCV 88.8, MCH 29.2, MCHC 32.9, RDW Coeff of [place]atsy 12.4, Plt Count 474 H, Immature Gran % (Auto) 0.8, Neut % (Auto) 69.0, Lymph % (Auto) 21.9, [place] % (Auto) 7.0, Eos % (Auto) 1.0, Baso % (Auto) 0.3, Neut # (Auto) 9.9 H, Lymph # (Auto) 3.1, [place] # (Auto) 1.0, Eos # (Auto) 0.2, Baso # (Auto) 0.0, Immature Gran # (Auto) 0.1 09/09/20 10:00: Adenovirus (PCR) Not detected, B. pertussis DNA (PCR) Not detec matt, B.parapertussis DNA PCR Not detected, C. pneumoniae DNA (PCR) Not detected, Coronavirus OC43 (PCR) Not detected, Coronavirus HKU1 (PCR) Not detected, Coronavirus 229E (PCR) Not detected, Coronavirus NL63 (PCR) Not detected, Human Metapneumovir PCR Not detected, Influenza Type A (PCR) Not detected, Influenza B (RT-PCR) Not detected, M. pneumoniae (PCR) Not detected, Parainfluenza 1 (PCR) Not detected, Parainfluenza 2 (PCR) Not detected, Parainfluenza 3 (PCR) Not detected, Parainfluenza 4 (PCR) Not detected, RSV (PCR) Not detected, Entero/Rhino (PCR) Not detected, SARS-CoV-2 (PCR) Not detected ASSESSMENT: Please see below. 1. Acute renal failure PLAN: 1. Creatinine and BUN showed slight improvement. Hgb dropped from hemodiluation 3. Discontinue Metformin and Ozempic 3. Normal saline to be at 125cc an hour 4. No evidence of fluid overload 5. Cardiovascular status is stable 6. Monitor CBC and CMP , hgb may drop further 7. Lovenox 40mg 8. Compliance discussed with patient 9. The patient is already started on Rocephin 1 gram 10.Check lactic acid level and Procalcitonin CONDITION: Stable. Plan and coordination of the patient's care discussed in the presence of [employer] Decorator and nurse. SCRIBED BY: MEGGAN WINKLER Golf Professional scribed while in presence of service performed by Dr. ROBERTO SIU on 09/10/20 ([id number])
[2020-09-10] MEDS: HUMULIN R SUBCUT PRN ×2 (12:03→20:53)
--- NOTE | 2020-09-10 13:42 | PN ---
DATE OF SERVICE: 09/09/2020 ADMIT NOTE SUBJECTIVE: 70 year old white female was advised to go to the emergency room after I talked to Dr. Garcia on the phone. He was concerned about her labs. While in the emergency room she had repeat labs which showed acute renal failure. She has been diarrhea and abdominal discomfort with weight loss which is partly responsible from Ozempic. REVIEW OF SYSTEMS: CONSTITUTIONAL: No night sweats. No fatigue, malaise, lethargy. No fever or chills. HEENT: Eyes: No visual changes. No eye pain. No eye discharge. ENT: No runny nose. No epistaxis. No sinus pain. No sore throat. No odynophagia. No congestion. RESPIRATORY: No cough, no congestion. No hemoptysis. No shortness of breath. CARDIOVASCULAR: No angina symptoms. No CHF symptoms. No atypical chest pain for CAD. No palpitations. No PND. No orthopnea. GASTROINTESTINAL: No abdominal pain. No nausea or vomiting. No diarrhea or constipation. No hematemesis. No hematochezia. GENITOURINARY: No urgency. No frequency. No dysuria. No hematuria. No obstructive symptoms. No discharge. No pain. No significant abnormal bleeding. MUSCULOSKELETAL: No musculoskeletal pain; no joint swelling. NEUROLOGICAL: No headache. No neck pain. No syncope. No seizures. No dizziness. PSYCHIATRIC: Not anxious. No depression. No suicidal thoughts. No homicidal thoughts. SKIN: No rash. No lesions. No wounds. ENDOCRINE: No unexplained weight loss. No weight gain. HEMATOLOGIC/LYMPHATIC: No anemia. No purpura. No petechiae. No prolonged or excessive bleeding. No palpable lymph nodes. PHYSICAL EXAMINATION: HEENT: Head normocephalic, atraumatic. Eyes: Extraocular muscles are intact. Pupils are equal, round and reactive to light and accommodation. Ears: No lesions. Nose appeared normal. Throat: No exudate or erythema. NECK: Supple. No JVD, no carotid bruit. No lymphadenopathy or thyromegaly. LUNGS: Clear to auscultation. Percussion note normal. Chest symmetrical. HEART: S1, S2, no S3. No murmurs. No cyanosis or clubbing. No ascites. Pulses: Dorsalis pedis and posterior tibial pulses +1 to +2 bilaterally. ABDOMEN: Soft. Nontender. Bowel sounds active. No CVA tenderness. No mass felt. EXTREMITIES: No edema. Full range of motion of all extremities, equal. NEUROLOGIC: No focal deficit. Cranial nerves II through XII are grossly intact. No headache, no double vision or headache. SKIN: Not dry. Intact. Turgor - Poor LYMPHATIC: No palpable lymph nodes/no lymphedema. MUSCULOSKELETAL: Normal joints with no swelling. Muscle tone is normal. LABS: Creatinine 2.9, BUN 54, WBC 14,000. U/A was practically unremarkable. CT scan of the chest and abdomen didn't show any acute findings. ASSESSMENT: 1. Acute renal failure likely combination of Ozempic and continuation of Metformin with viral syndrome probably creating dehydration with history of diabetes PLAN: 1. Give IV fluids 2. Discontinue Ozempic and Metformin CONDITION: Stable. TIME SPENT: More than 30 minutes. Plan and coordination of the patient's care discussed in the presence of nurse. DARCY
--- NOTE | 2020-09-10 14:07 | HP ---
DATE OF SERVICE: 09/09/2020 REASON FOR HOSPITALIZATION: Acute renal failure HISTORY OF PRESENT ILLNESS: 70 year old white female was instructed to go to the emergency room as her labs that were done preop with Dr. Garcia, orthopedic surgeon, were abnormal. He called and discussed. The patient on arrival at the emergency room complained of weakness, chronic diarrhea with duration of symptoms 4-5 weeks. The patient's labs were done. COVID was negative and sodium 127, creatinine 2.9, BUN 54 with GFR 16 indicating that the patient was in acute renal failure. The patient's U/A was negative for any leukocyte esterase. CT scan of the chest and CT scan of the abdomen were unremarkable. REVIEW OF SYSTEMS: CONSTITUTIONAL: No night sweats. No fever or chills. Weakness and fatigue. HEENT: Eyes: No visual changes. No eye pain. No eye discharge. ENT: No runny nose. No epistaxis. No sinus pain. No sore throat. No odynophagia. No ear pain. No congestion. RESPIRATORY: No cough, no congestion. No hemoptysis. No shortness of breath. CARDIOVASCULAR: No angina symptoms. No CHF symptoms. No atypical chest pain for CAD. No palpitations. No PND. No orthopnea. GASTROINTESTINAL: Mild abdominal discomfort. Nausea. diarrhea duration three weeks with 30 pound weight loss. No hematemesis. No hematochezia. Poor appetite. GENITOURINARY: No urgency. No frequency. No dysuria. No hematuria. No obstructive symptoms. No discharge. No pain. No significant abnormal bleeding. MUSCULOSKELETAL: No musculoskeletal pain. No joint swelling. No arthritis. Severe pain in the right knee, arthritic type for several months to walk. NEUROLOGICAL: No headache. No neck pain. No syncope. No seizures. No dizziness. PSYCHIATRIC: Not anxious. No depression. No suicidal thoughts. No homicidal thoughts. SKIN: No rash. No lesions. No wounds. ENDOCRINE: No unexplained weight loss. No weight gain. HEMATOLOGIC/LYMPHATIC: No anemia. No purpura. No petechiae. No prolonged or excessive bleeding. No palpable lymph nodes. PERSONAL/FAMILY/SOCIAL HISTORY: The patient is and lives with the . Unable to do activities of daily living lately because of severe osteoarthritic problems with knee. Non smoker. No alcohol abuse. 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 MEDICATIONS: Zyrtec [place] fatty acids Albuterol inhaler Jardiance Metformin Aspirin Losartan Pantoprazole Xanax Glipizide Hydrochlorothiazide Hydrocodone Meloxicam Metformin Simvastatin Trazodone Flagyl ALLERGIES: Codeine PHYSICAL EXAMINATION: GENERAL: The patient is oriented to time, place and person. VITAL SIGNS: Temperature 98.4, pulse 80, respiratory rate 15, blood pressure 130/70, oxygen saturation 97% on room air. HEENT: Head normocephalic, atraumatic. Eyes: Extraocular muscles are intact. Pupils are equal, round and reactive to light and accommodation. Ears: No lesions. Nose appeared normal. Throat: No exudate or erythema. NECK: Supple. No JVD, no carotid bruit. No lymphadenopathy or thyromegaly. LUNGS: Clear to auscultation. Percussion note normal. Chest symmetrical. HEART: S1, S2, no S3. No murmur. No cyanosis or clubbing. No ascites. Pulses: Dorsalis pedis and posterior tibial pulses +1 to +2 bilaterally. ABDOMEN: Soft. Nontender. Bowel sounds active. No CVA tenderness. No mass felt. EXTREMITIES: No edema. Full range of motion of all extremities, equal. NEUROLOGIC: No focal deficit. Cranial nerves II through XII are grossly intact. No headache, no double vision or headache. SKIN: Dry. Intact. Turgor - normal. Mucus membrane dry. LYMPHATIC: No palpable lymph nodes/no lymphedema. MUSCULOSKELETAL: Normal joints with no swelling. Muscle tone is normal. LABS: Sodium 127, creatinine 2.9, BUN 54. Alkaline phosphatase 255, hgb 12, hct 36, WBC 14,000 with normal differential. ABG pH 7.4, pO2 75, pCO2 31. Oxygen saturation 94%. PCR COVID test negative. CT scan of the abdomen and chest unremarkable and no acute findings. ASSESSMENT: 1. Acute renal failure likely cause combination of Meloxicam, nonsteroidal antiinflammatory with Ozempic and Metformin causing abdominal discomfort, diarrhea, and nausea 2. History of diabetes mellitus 3. Morbid obesity with having BMI of 45 4. Dyslipidemia 5. History of hypertension 6. Metabolic syndrome 7. Generalized anxiety disorder 8. Status post right knee replacement 9. Status post left shoulder replacement 10.History of asthmatic bronchitis 11.Left foot surgery, left bunionectomy all done by Dr. Rangel 12.Noncompliance of lifestyle and recommendations PLAN: 1. IV fluids 1000cc normal saline to be infused 125cc per hour 2. Watch for fluid overload 3. Telemetry and routine telemetry orders which will be included as serial EKGS and cardiac markers with oximetry telemetry monitoring 4. CBC and CMP to monitor kidney functions and liver functions 5. Continue Meloxicam, Simvastatin, Metformin and Ozempic 6. Protonix 40mg PO daily 7. Regular diet 8. Sliding scale with insulin coverage for hyperglycemia 9. Rocephin 1 gram IV 10.Education carried out about patient's multiple medical problems she has and having renal failure with mild metabolic acidosis. It is to be noted that the patient's A1c was 7.7 on 06/11/2020 with hgb of 10.5 and hct of 48. The patient's hgb now is 10 likely cause could be from Meloxicam or gastritis. No evidence of active GI bleed at present time. CONDITION: Stable. CC: Dr. Garcia TIME SPENT: More than 70 minutes. MTDD
[2020-09-10] MEDS: SINGULAIR PO SCH (20:36)
[2020-09-10] MEDS: DESYREL PO SCH (20:36)
[2020-09-11] MEDS: NORCO 5-325 PO PRN ×4 (00:15→23:36)
[2020-09-11 05:10] LABS: BASOPHILS % (AUTO) 0.2 % (0.0-3.0); EOSINOPHILS # (AUTO) 0.1 K/ul (0.0-0.7); EOSINOPHILS % (AUTO) 1.7 % (0.0-7.0); IMMATURE GRANULOCYTE # (AUTO) 0.1 (0.0-1.0); IMMATURE GRANULOCYTE % (AUTO) 0.9 % (0.0-5.0); LYMPHOCYTES # (AUTO) 1.9 K/uL (0.60-3.4); LYMPHOCYTES % (AUTO) 23.2 (10.0-50.0); MEAN CORPUSCULAR HEMOGLOBIN 29.7 pg (27.0-31.0); MEAN CORPUSCULAR HGB CONC 33.3 (31.8-35.4); MONOCYTES # (AUTO) 0.8 K/uL (0.4-2.0); MONOCYTES % (AUTO) 9.7 (0-10); NEUTROPHILS # (AUTO) 5.2 K/ul (2.0-6.9); NEUTROPHILS % (AUTO) 64.3 % (42.2-75.2); PLATELET COUNT 375 10^3/uL (140-440); RDW COEFFICIENT OF VARIATION 12.6 % (11.6-14.8); RED BLOOD COUNT 3.37 10^6/ul (4.20-5.40); WHITE BLOOD COUNT 8.02 K/ul (4.6-10.2)
[2020-09-11 05:27] LABS: ALANINE AMINOTRANSFERASE 15.4 U/L (0-35); ALBUMIN 2.84 g/dL (3.5-5.0); ALKALINE PHOSPHATASE 171.5 U/L (53-141); ASPARTATE AMINO TRANSFERASE 25.8 U/L (14-36); BILIRUBIN,TOTAL 0.33 mg/dL (0.2-1.3); CALCIUM 9.48 mg/dL (8.4-10.2); CARBON DIOXIDE 19.4 mmol/L (22-30.0); CREATININE 3.01 mg/dL (0.60-1.30); GLUCOSE 122.8 mg/dL (74-106); POTASSIUM 3.67 mmol/L (3.5-5.1); SODIUM 133.1 mmol/L (134.5-145); TOTAL PROTEIN 6.33 g/dL (6.3-8.2)
[2020-09-11] MEDS: ASPIRIN CHEWABLE PO SCH (08:38)
[2020-09-11] MEDS: COZAAR PO SCH (08:38)
[2020-09-11] MEDS: GLUCOTROL PO SCH (08:38)
[2020-09-11] MEDS: XANAX PO SCH ×2 (08:38→20:37)
[2020-09-11] MEDS: LOVENOX SUBCUT SCH (08:39)
[2020-09-11] MEDS: [UNRECOGNIZED DRUG - OTHER] PO SCH (08:39)
[2020-09-11] MEDS: ROCEPHIN 1 GM/50 ML D5W 1 GM/50 ML BAG IV SCH (08:45)
[2020-09-11] MEDS: HUMULIN R SUBCUT PRN ×3 (11:12→20:35)
[2020-09-11] MEDS: SODIUM CHLORIDE 1,000 ML IV SCH ×3 (12:37→16:30)
--- NOTE | 2020-09-11 13:33 | DI ---
EXAM: Radiographs, left wrist HISTORY: Left wrist pain. COMPARISON: None. TECHNIQUE: Three views. FINDINGS: Bone mineralization is decreased. There is no fracture or dislocation. Osteoarthritic ch anges, moderate to severe at the first carpal metacarpal joint. No focal soft tissue abnormality det ected. IMPRESSION: No fracture or dislocation.
[2020-09-11] MEDS: PROTONIX PO SCH ×2 (14:00→17:50)
[2020-09-11] MEDS: DESYREL PO SCH (20:37)
[2020-09-11] MEDS: SINGULAIR PO SCH (20:37)
[2020-09-12 05:16] LABS: BASOPHILS % (AUTO) 0.5 % (0.0-3.0); EOSINOPHILS # (AUTO) 0.1 K/ul (0.0-0.7); EOSINOPHILS % (AUTO) 1.7 % (0.0-7.0); HEMATOCRIT 33.8 % (37.0-47.0); HEMOGLOBIN 10.6 g/dl (12.0-16.0); IMMATURE GRANULOCYTE % (AUTO) 0.5 % (0.0-5.0); LYMPHOCYTES # (AUTO) 2.2 K/uL (0.60-3.4); LYMPHOCYTES % (AUTO) 26.7 (10.0-50.0); MEAN CORPUSCULAR HEMOGLOBIN 29.9 pg (27.0-31.0); MEAN CORPUSCULAR HGB CONC 31.4 (31.8-35.4); MEAN CORPUSCULAR VOLUME 95.2 fl (81.0-99.0); MONOCYTES # (AUTO) 0.8 K/uL (0.4-2.0); MONOCYTES % (AUTO) 9.9 (0-10); NEUTROPHILS # (AUTO) 5.1 K/ul (2.0-6.9); NEUTROPHILS % (AUTO) 60.7 % (42.2-75.2); PLATELET COUNT 289 10^3/uL (140-440); RDW COEFFICIENT OF VARIATION 13.3 % (11.6-14.8); RED BLOOD COUNT 3.55 10^6/ul (4.20-5.40); WHITE BLOOD COUNT 8.36 K/ul (4.6-10.2)
[2020-09-12 05:43] LABS: ALANINE AMINOTRANSFERASE 16.2 U/L (0-35); ALBUMIN 2.8 g/dL (3.5-5.0); ALKALINE PHOSPHATASE 160.9 U/L (53-141); ASPARTATE AMINO TRANSFERASE 29.2 U/L (14-36); BILIRUBIN,TOTAL 0.31 mg/dL (0.2-1.3); CALCIUM 9.64 mg/dL (8.4-10.2); CARBON DIOXIDE 19.9 mmol/L (22-30.0); CHLORIDE 109.5 mmol/L (98-107); CREATININE 1.6 mg/dL (0.60-1.30); GLUCOSE 152.5 mg/dL (74-106); POTASSIUM 3.96 mmol/L (3.5-5.1); SODIUM 134.9 mmol/L (134.5-145); TOTAL PROTEIN 6.27 g/dL (6.3-8.2)
[2020-09-12] MEDS: PROTONIX PO SCH ×2 (05:47→16:44)
[2020-09-12] MEDS: SODIUM CHLORIDE 1,000 ML IV SCH ×3 (05:48→16:49)
[2020-09-12] MEDS: HUMULIN R SUBCUT PRN ×4 (06:22→20:48)
[2020-09-12] MEDS ORDERED: LOVENOX SUBCUT SCH (09:00)
[2020-09-12] MEDS: XANAX PO SCH ×2 (09:18→20:47)
[2020-09-12] MEDS: NORCO 5-325 PO PRN ×3 (09:18→21:49)
[2020-09-12] MEDS: ASPIRIN CHEWABLE PO SCH (09:18)
[2020-09-12] MEDS: ROCEPHIN 1 GM/50 ML D5W 1 GM/50 ML BAG IV SCH (09:18)
[2020-09-12] MEDS: [UNRECOGNIZED DRUG - OTHER] PO SCH (09:18)
[2020-09-12] MEDS: COZAAR PO SCH (09:18)
[2020-09-12] MEDS: DULCOLAX PO SCH (16:44)
[2020-09-12] MEDS: SINGULAIR PO SCH (20:47)
[2020-09-12] MEDS: DESYREL PO SCH (20:47)
[2020-09-13] MEDS: NORCO 5-325 PO PRN ×3 (04:42→21:42)
[2020-09-13 05:32] LABS: BASOPHILS % (AUTO) 0.3 % (0.0-3.0); EOSINOPHILS # (AUTO) 0.2 K/ul (0.0-0.7); EOSINOPHILS % (AUTO) 1.9 % (0.0-7.0); HEMATOCRIT 30.7 % (37.0-47.0); IMMATURE GRANULOCYTE % (AUTO) 0.5 % (0.0-5.0); LYMPHOCYTES # (AUTO) 2.3 K/uL (0.60-3.4); LYMPHOCYTES % (AUTO) 28.7 (10.0-50.0); MEAN CORPUSCULAR HEMOGLOBIN 29.5 pg (27.0-31.0); MEAN CORPUSCULAR HGB CONC 32.6 (31.8-35.4); MEAN CORPUSCULAR VOLUME 90.6 fl (81.0-99.0); MONOCYTES # (AUTO) 0.6 K/uL (0.4-2.0); MONOCYTES % (AUTO) 7.8 (0-10); NEUTROPHILS # (AUTO) 4.9 K/ul (2.0-6.9); NEUTROPHILS % (AUTO) 60.8 % (42.2-75.2); PLATELET COUNT 382 10^3/uL (140-440); RED BLOOD COUNT 3.39 10^6/ul (4.20-5.40); WHITE BLOOD COUNT 7.97 K/ul (4.6-10.2)
[2020-09-13 05:43] LABS: ALANINE AMINOTRANSFERASE 17.1 U/L (0-35); ALBUMIN 2.91 g/dL (3.5-5.0); ALKALINE PHOSPHATASE 166.8 U/L (53-141); BILIRUBIN,TOTAL 0.34 mg/dL (0.2-1.3); BLOOD UREA NITROGEN 21.6 mg/dL (7-17); CALCIUM 9.84 mg/dL (8.4-10.2); CARBON DIOXIDE 22.8 mmol/L (22-30.0); CHLORIDE 108.1 mmol/L (98-107); CREATININE 0.94 mg/dL (0.60-1.30); GLUCOSE 169.8 mg/dL (74-106); POTASSIUM 3.85 mmol/L (3.5-5.1); SODIUM 136.9 mmol/L (134.5-145); TOTAL PROTEIN 6.56 g/dL (6.3-8.2)
[2020-09-13] MEDS: PROTONIX PO SCH ×2 (05:43→17:29)
[2020-09-13] MEDS: HUMULIN R SUBCUT PRN ×4 (05:58→20:26)
[2020-09-13] MEDS ORDERED: CITRATE OF MAGNESIA PO STA (08:33)
--- NOTE | 2020-09-13 09:10 | PCM.PROG ---
Attending Provider: ATTENDING PROVIDER: Dr. ROBERTO HERRING This patient is seen with Mary Charlton, Nurse Practitioner. DATE OF SERVICE: 09/13/20 SUBJECTIVE: This 70 year old /WHITE F was hospitalized 09/09/20. The patient is still complaining of extreme pain with any movement. She has required bed vargas. We have explained the need to get moving. We will have therapy evaluate her today. She needs strength prior to having knee replacement. Kidney function has improved. REVIEW OF SYSTEMS: CONSTITUTIONAL: No night sweats. No fatigue, malaise, lethargy. No fever or chills. Weakness. HEENT: Eyes: No visual changes. No eye pain. No eye discharge. ENT: No runny nose. No epistaxis. No sinus pain. No odynophagia. No congestion. RESPIRATORY: No cough, no congestion. No hemoptysis. No shortness of breath. CARDIOVASCULAR: No angina symptoms. No CHF symptoms. No atypical chest pain for CAD. No palpitations. No orthopnea.. GASTROINTESTINAL: No abdominal pain. No nausea or vomiting. No diarrhea or constipation. No hematemesis. No hematochezia. GENITOURINARY: No urgency. No frequency. No dysuria. No hematuria. No obstructive symptoms. No discharge. No pain. No significant abnormal bleeding. MUSCULOSKELETAL: No musculoskeletal pain; no joint swelling. Knee pain. NEUROLOGICAL: Awake, alert, oriented to time, place and person. No headache. No neck pain. No syncope. No seizures. No dizziness. PSYCHIATRIC: Not anxious. No depression. No suicidal thoughts. No homicidal thoughts. SKIN: No rash. No lesions. No wounds. ENDOCRINE: No unexplained weight loss. No weight gain. HEMATOLOGIC/LYMPHATIC: No anemia. No purpura. No petechiae. No prolonged or excessive bleeding. No palpable lymph nodes. PHYSICAL EXAMINATION: GENERAL: The patient is awake, alert and oriented, lying in bed in no distress. VITAL SIGNS: Temperature 98 F, Pulse 74, Respiratory Rate 18, BP 137/72, Pulse Ox 95% HEENT: Head normocephalic, atraumatic. Eyes: Extraocular muscles are intact. Pupils are equal, round and reactive to light and accommodation. Ears: No lesions. Nose appeared normal. Throat: No exudate or erythema. NECK: Supple. No JVD, no carotid bruit. No lymphadenopathy or thyromegaly. LUNGS: Diminished breath sounds. Clear to auscultation. Percussion note normal. Chest symmetrical. HEART: S1, S2, no S3. No murmurs. No cyanosis or clubbing. No ascites. Pulses: Dorsalis pedis and posterior tibial pulses +1 to +2 both sides. ABDOMEN: Soft. Non-tender. Bowel sounds active. No CVA tenderness. No mass felt. EXTREMITIES: No edema. Full range of motion of all extremities, equal. NEUROLOGIC: No focal deficit. Cranial nerves II through XII are grossly intact. No headache, no double vision or headache. SKIN: Not dry. Intact. Turgor-normal. LYMPHATIC: No palpable lymph nodes/no lymphedema. MUSCULOSKELETAL: Normal joints with no swelling. Muscle tone is normal. LAB REVIEW: 09/13/20 04:50 09/13/20 04:50 09/13/20 04:50: Sodium 136.9, Potassium 3.85, Chloride 108.1 H, Carbon Dioxide 22.8, Anion Gap 9.85, BUN 21.6 H, Creatinine 0.94 D, Estimated GFR (MDRD) 59.00, BUN/Creatinine Ratio 22.97, Glucose 169.8 H, Calcium 9.84, Total Bilirubin 0.34, AST 28.0, ALT 17.1, Alkaline Phosphatase 166.8 H, Total Protein 6.56, Albumin 2.91 L, Globulin 3.65, Albumin/Globulin Ratio 0.79 09/13/20 04:50: WBC 7.97, RBC 3.39 L, Hgb 10.0 L, Hct 30.7 L, MCV 90.6, MCH 29.5, MCHC 32.6, RDW Coeff of Patsy 13.0, Plt Count 382 D, Immature Gran % (Auto) 0.5, Neut % (Auto) 60.8, Lymph % (Auto) 28.7, [place] % (Auto) 7.8, Eos % (Auto) 1.9, Baso % (Auto) 0.3, Neut # (Auto) 4.9, Lymph # (Auto) 2.3, [place] # (Auto) 0.6, Eos # (Auto) 0.2, Baso # (Auto) 0.0, Immature Gran # (Auto) 0.0 ASSESSMENT: Please see below. 1. Generalized weakness 2. Dehydration, improved 3. Acute renal failure, resolved 4. Right knee pain PLAN: 1. 1cc IM Decadrone 2. Half bottle of mag citrate 3. Discontinue IV fluids 4. PT/OT evaluation 5. Will consider swing bed Plan and coordination of the patient's care discussed in the presence of Film Sound Engineer and nurse. SCRIBED BY: Rossy FERNANDEZ scribed while in presence of service performed by Dr. Herring/Mary Charlton APRN on 09/13/20 ([id number])
[2020-09-13] MEDS: XANAX PO SCH ×2 (09:37→20:28)
[2020-09-13] MEDS: COLACE PO SCH ×2 (09:37→20:25)
[2020-09-13] MEDS: COZAAR PO SCH (09:37)
[2020-09-13] MEDS: ASPIRIN CHEWABLE PO SCH (09:37)
[2020-09-13] MEDS: DECADRON IM STA ×2 (09:37→10:05)
[2020-09-13] MEDS: LOVENOX SUBCUT SCH (09:38)
[2020-09-13] MEDS: [UNRECOGNIZED DRUG - OTHER] PO SCH (09:40)
[2020-09-13] MEDS: DULCOLAX PO SCH (10:05)
--- NOTE | 2020-09-13 10:54 | PN ---
DATE OF SERVICE: 09/13/2020 SUBJECTIVE: The patient was seen and examined with the Nurse Practitioner. The patient's condition has improved remarkably. Her hydration status is normal. Her kidney levels are practically normal. Sodium is stable. Hgb is stable no evidence of any GI bleed. Her appetite has improved. Blood sugar is acceptable. Dr. Garcia was informed about her condition She needs to stay in the swing bed, we will evaluate her. CONDITION: Stable, improving. TIME SPENT: More than 30 minutes. Plan and coordination of the patient's care discussed in the presence of nurse. DARCY
--- NOTE | 2020-09-13 13:19 | PN ---
DATE OF SERVICE: 09/11/20 SUBJECTIVE: 70-year-old white female hospitalized with severe dehydration, abdominal distress with diarrhea. The patient says she is feeling a lot better. Her appetite has improved. Urine output is adequate. She is being given IV fluids 125 cc/hr NS. She is off Ozempic, Mobic, Metformin. REVIEW OF SYSTEMS: CONSTITUTIONAL: No night sweats. No fatigue, malaise, lethargy. No fever or chills. HEENT: Eyes: No visual changes. No eye pain. No eye discharge. ENT: No runny nose. No epistaxis. No sinus pain. No sore throat. No odynophagia. No congestion. RESPIRATORY: No cough, no congestion. No hemoptysis. No shortness of breath. CARDIOVASCULAR: No angina symptoms. No CHF symptoms. No atypical chest pain for CAD. No palpitations. No PND. No orthopnea. GASTROINTESTINAL: Appetite has improved. No abdominal pain. No nausea or vomiting. No diarrhea or constipation. No hematemesis. No hematochezia. GENITOURINARY: No urgency. No frequency. No dysuria. No hematuria. No obstructive symptoms. No discharge. No pain. No significant abnormal bleeding. MUSCULOSKELETAL: No musculoskeletal pain; no joint swelling. NEUROLOGICAL: No headache. No neck pain. No syncope. No seizures. No dizziness. PSYCHIATRIC: Not anxious. No depression. No suicidal thoughts. No homicidal thoughts. SKIN: No rash. No lesions. No wounds. ENDOCRINE: No unexplained weight loss. No weight gain. HEMATOLOGIC/LYMPHATIC: No anemia. No purpura. No petechiae. No prolonged or excessive bleeding. No palpable lymph nodes. PHYSICAL EXAMINATION: VITAL SIGNS: Temperature 97.8, pulse 75, respiratory rate 28, BP 123/63, pulse ox 96%. HEENT: Head normocephalic, atraumatic. Eyes: Extraocular muscles are intact. Pupils are equal, round and reactive to light and accommodation. Ears: No lesions. Nose appeared normal. Throat: No exudate or erythema. NECK: Supple. No JVD, no carotid bruit. No lymphadenopathy or thyromegaly. LUNGS: Clear to auscultation. Percussion note normal. Chest symmetrical. HEART: S1, S2, no S3. No murmurs. No cyanosis or clubbing. No ascites. Pulses: Dorsalis pedis and posterior tibial pulses +1 to +2 bilaterally. ABDOMEN: Soft. Nontender. Bowel sounds active. No CVA tenderness. No mass felt. EXTREMITIES: No edema. Full range of motion of all extremities, equal. NEUROLOGIC: No focal deficit. Cranial nerves II through XII are grossly intact. No headache, no double vision or headache. SKIN: Not dry. Intact. Turgor - normal. LYMPHATIC: No palpable lymph nodes/no lymphedema. MUSCULOSKELETAL: Normal joints with no swelling. Muscle tone is normal. LABS: Hemoglobin 10, hematocrit 30, WBC 8,000, normal differential. Creatinine 3, BUN 49, potassium 3.6, sodium 133. Covid negative. Glucose 122. Telemetry - sinus rhythm. No arrhythmias. ASSESSMENT: 1. Acute renal failure seems to be stable with some improvement in labs. 2. Severe dehydration seems to have revolved with normal skin turgor. 3. Acute gastritis seems to have been improvement with improvement in appetite. 4. Anemia which could have been from gastritis. No evidence of active GI bleed. 5. Diabetes seems to be under control. She is going to be off Glipizide. 6. Hypertension controlled. PLAN: 1. Will start Protonix 40 mg twice a day. 2. Will do bladder scan. 3. D/C Glipizide. 4. CT scan of the chest and CT scan of the abdomen were unremarkable. 5. Protonix 40 twice a day. 6. The patient is to eat good. 7. Cut down the IV fluids to 75 cc/hr. Watch for fluid overload. The patient is feeling a lot better. She is very complimentary to the nursing care. TIME SPENT: More than 30 minutes. Plan and coordination of the patient's care discussed in the presence of nurse. DARCY
--- NOTE | 2020-09-13 13:30 | RS.OTINEVL ---
Subjective - Patient information Date of Evaluation: 09/13/20 Date of Arrival on Unit: 09/09/20 Admitted From:: Emergency Dept Diagnosis: Weakness, Chronic Diarrhea, dehydration PRECAUTIONS: DMII, Fall Precautions Usual Living Arrangement: With Spouse Living Arrangement Comments: Lives with Home Environment: House Medical History: Diabetes Medical History Comments:: Renal cysts, DMII, Left reverse shoulder, Diverticulosis, Nodule on thyroid Surgical History: Knee Replacement Surgical History Comments:: Right TKA, Left shoulder replacement. Subjective Information/ Patient Comments:: "I need help moving my feet." - Level of function Prior to this admission, the patient could do the following:: Independent ADL's Abilities prior to this admission: Pt was able to transfer to the [facility] and complete her toileting herself. Current Level of Function: Partially Dependent Current Equipment Used at Home: Glucometer, walker Pain Assessment - Pain Pain Score: 8 Side: bilateral Pain Location Body Site: Knee Pain Aggravating Factors: ADL's, Changing Position, Exercise/Activity, Standing, Sitting, Walking, Stair Climbing Pain Alleviating Factors: Medication Interventions - Objective Patient Orientation: Person, Place, Time, Situation Current Interventions: IV's, Oxygen, Telemetry Observation: Pt was able to sit EOB with moderate assistance to get to sitting EOB. Pt cannot scoot herself. Pt has LUE shoulder weakness, Left wrist pain and weakness. Pt requires moderate assistance with legs to roll in bed. Interventions - ROM Right Upper Extremity AROM: WFL's Left Upper Extremity AROM: Slight limitation - Strength Right Upper Extremity Strength: Mild Weakness Left Upper Extremity Strength: Mild Weakness - Sensation Right Upper Extremity Sensation: Intact/Normal Left Upper Extremity Sensation: Intact/Normal Balance - Sitting Balance Static Sitting Balance: Fair Dynamic Sitting Balance: Fair ADL Skills - Self Feeding Self Feeding: Independent - Grooming Grooming: Min Assist - Bathing Bathing UE: Max Assist Bathing LE: Max Assist - Toilet Management Toileting Management: Max Assist - Comments Comments:: Pt is using a bed vargas and not getting up out of bed. Functional Mobility - Bed Mobility Rolling R/L: Mod Assist Scooting: Max Assist, 2 person assist Supine to Sit: Max Assist, 2 person assist Sit to Supine: Mod Assist, 2 person assist - Ambulation Assistance needed with Ambulation: Not Tested - Safety Awareness Safety Awareness: Good CLEMENCIA INDEX SCORE: . Additional Treatment Performed - Additional units charged ADL: 20 - Time with patient Length of Evaluation: 25 Total treatment time: 55 Activities Would you be interested in leaving your room for activities?: Yes What types of things do you enjoy doing? Any Hobbies?: Television Patient Interests:: Watching Television, Visiting/Socializing Patient Education Patient Education: Education of diagnosis, Home Exercise Program, Education of Plan of Care Teaching Recipient: Patient Teaching Methods: Discussion Assessment Problem List:: Decreased level of function, Requires training/education, Decreased safety/Risk of falls, Weakness, Pain limits previous level of function Rehab Potential: Fair Evaluation Complexity: HISTORY: Medium, EXAM OF BODY SYSTEMS: Medium, CLINICAL DECISION MAKING: Medium Patient's Goal(s): To be able to walk and take care of myself so I can have surgery. Short Term Goals - Goals GOAL 1: Pt to complete sink level ADLS with setup. Goal to be met by: 09/16/20 GOAL 2: Pt to increase BUE strength to 4/5. Goal to be met by: 09/16/20 GOAL 3: Pt to complete toilet transfers with RW with moderate assistance. Goal to be met by: 09/16/20 [place] [employer] Goals GOAL 1: Pt to complete sink level ADLS (I) with RW. Goal to be met by: 09/21/20 GOAL 2: Pt to increase BUE strength to 4+/5. Goal to be met by: 09/24/20 GOAL 3: Pt to complete ADLS with CGA and RW. Goal to be met by: 09/24/20 Plan Plan of Care: Therapeutic EX, Therapeutic Activity, Self-Care/Home Management Frequency of Treatment: 1-2 X day, as tolerated Duration of Treatment: 2 Weeks Anticipated Discharge Destination: Home Treatment Diagnosis (ICD 10 Codes): Muscle Weakness M62.81, Z74.1 Need for assistance with personal care. Has the Physician been added for Co-signature?: Yes
--- NOTE | 2020-09-13 13:39 | PN ---
DATE OF SERVICE: 09/12/20 SUBJECTIVE: 70-year-old white female hospitalized with dehydration, acute renal failure. The patient's acute renal failure was a combination of having Ozempic with side effects along with Metformin and Meloxicam and has severe right knee pain which she is to undergo surgery on the knee. Preop labs were done and were abnormal. She was followed up in the emergency room because of abnormal labs and at that time, the patient's creatinine jumped from 1 to 3. The patient is feeling a lot better. REVIEW OF SYSTEMS: CONSTITUTIONAL: No night sweats. No fatigue, malaise, lethargy. No fever or chills. HEENT: Eyes: No visual changes. No eye pain. No eye discharge. ENT: No runny nose. No epistaxis. No sinus pain. No sore throat. No odynophagia. No congestion. RESPIRATORY: No cough, no congestion. No hemoptysis. No shortness of breath. CARDIOVASCULAR: No angina symptoms. No CHF symptoms. No atypical chest pain for CAD. No palpitations. No PND. No orthopnea. GASTROINTESTINAL: Appetite is better. No abdominal pain. No nausea or vomiting. No diarrhea or constipation. No hematemesis. No hematochezia. GENITOURINARY: No urgency. No frequency. No dysuria. No hematuria. No obstructive symptoms. No discharge. No pain. No significant abnormal bleeding. MUSCULOSKELETAL: No musculoskeletal pain; no joint swelling. NEUROLOGICAL: No headache. No neck pain. No syncope. No seizures. No dizziness. PSYCHIATRIC: Not anxious. No depression. No suicidal thoughts. No homicidal thoughts. SKIN: No rash. No lesions. No wounds. ENDOCRINE: No unexplained weight loss. No weight gain. HEMATOLOGIC/LYMPHATIC: No anemia. No purpura. No petechiae. No prolonged or excessive bleeding. No palpable lymph nodes. PHYSICAL EXAMINATION: GENERAL: The patient is oriented to time, place and person. VITAL SIGNS: Temperature 98.1, pulse 87, respiratory rate 18, blood pressure 128/65, pulse ox 93% on room air. HEENT: Head normocephalic, atraumatic. Eyes: Extraocular muscles are intact. Pupils are equal, round and reactive to light and accommodation. Ears: No lesions. Nose appeared normal. Throat: No exudate or erythema. NECK: Supple. No JVD, no carotid bruit. No lymphadenopathy or thyromegaly. LUNGS: Clear to auscultation. Percussion note normal. Chest symmetrical. HEART: S1, S2, no S3. No murmurs. No cyanosis or clubbing. No ascites. Pulses: Dorsalis pedis and posterior tibial pulses +1 to +2 bilaterally. ABDOMEN: Soft. Nontender. Bowel sounds active. No CVA tenderness. No mass felt. EXTREMITIES: No edema. Full range of motion of all extremities, equal. NEUROLOGIC: No focal deficit. Cranial nerves II through XII are grossly intact. No headache, no double vision or headache. SKIN: Not dry. Intact. Turgor - normal. LYMPHATIC: No palpable lymph nodes/no lymphedema. MUSCULOSKELETAL: Normal joints with no swelling. Muscle tone is normal. LABS: Hemoglobin 10.6, hematocrit 33, WBC 8,300, normal differential. Creatinine 1.6, BUN 34, potassium 3.9. The patient's PCR test for Covid negative. She had rapid test done at [facility] for the virus which was negative. ASSESSMENT: 1. ACUTE RENAL FAILURE SEEMS TO BE RESOLVING. 2. DEHYDRATION RESOLVING. 3. ACUTE GASTRITIS SEEMS TO HAVE BEEN RESOLVING. 4. DIABETES MELLITUS. 5. HYPERTENSION. 6. DYSLIPIDEMIA. 7. ANEMIA. ALL STABLE PLAN: 1. Continue IV fluids. 2. The patient is constipated, will give her Dulcolax tablet or suppository. 3. Will put her on 2000 calorie ADA diet. 4. The patient may have to stay in the hospital to improve her endurance have physical therapy. She wants to stay here for swing bed. Condition seems to be improving. Cardiovascular status stable. TIME SPENT: More than 30 minutes. Plan and coordination of the patient's care discussed in the presence of nurse. DARCY
[2020-09-13] MEDS: SINGULAIR PO SCH (20:25)
[2020-09-13] MEDS: DESYREL PO SCH (20:27)
[2020-09-14 05:11] LABS: BASOPHILS % (AUTO) 0.2 % (0.0-3.0); EOSINOPHILS # (AUTO) 0.2 K/ul (0.0-0.7); HEMATOCRIT 30.5 % (37.0-47.0); HEMOGLOBIN 9.9 g/dl (12.0-16.0); IMMATURE GRANULOCYTE # (AUTO) 0.1 (0.0-1.0); IMMATURE GRANULOCYTE % (AUTO) 0.6 % (0.0-5.0); LYMPHOCYTES # (AUTO) 2.6 K/uL (0.60-3.4); MEAN CORPUSCULAR HEMOGLOBIN 29.1 pg (27.0-31.0); MEAN CORPUSCULAR HGB CONC 32.5 (31.8-35.4); MEAN CORPUSCULAR VOLUME 89.7 fl (81.0-99.0); MONOCYTES # (AUTO) 0.7 K/uL (0.4-2.0); MONOCYTES % (AUTO) 8.1 (0-10); NEUTROPHILS # (AUTO) 4.8 K/ul (2.0-6.9); NEUTROPHILS % (AUTO) 58.1 % (42.2-75.2); PLATELET COUNT 379 10^3/uL (140-440); RDW COEFFICIENT OF VARIATION 12.9 % (11.6-14.8)
[2020-09-14 05:27] LABS: ALBUMIN 2.98 g/dL (3.5-5.0); ALKALINE PHOSPHATASE 165.4 U/L (53-141); ASPARTATE AMINO TRANSFERASE 24.9 U/L (14-36); BILIRUBIN,TOTAL 0.39 mg/dL (0.2-1.3); CALCIUM 9.77 mg/dL (8.4-10.2); CARBON DIOXIDE 23.3 mmol/L (22-30.0); CHLORIDE 106.7 mmol/L (98-107); CREATININE 0.68 mg/dL (0.60-1.30); GLUCOSE 184.8 mg/dL (74-106); POTASSIUM 3.74 mmol/L (3.5-5.1); SODIUM 134.4 mmol/L (134.5-145); TOTAL PROTEIN 6.58 g/dL (6.3-8.2)
[2020-09-14] MEDS: PROTONIX PO SCH ×2 (05:47→17:55)
[2020-09-14] MEDS: HUMULIN R SUBCUT PRN ×4 (05:48→21:16)
[2020-09-14] MEDS ORDERED: DECADRON IM STA (08:32)
[2020-09-14] MEDS ORDERED: DULCOLAX PO PRN (08:34)
--- NOTE | 2020-09-14 09:21 | PCM.PROG ---
Attending Provider: ATTENDING PROVIDER: Dr. ROBERTO SIU This patient is seen with Mary Charlton, Nurse Practitioner. DATE OF SERVICE: 09/14/20 SUBJECTIVE: This 70 year old /WHITE F was hospitalized 09/09/20. The patient is resting comfortably. She worked with OT yesterday and states it helped. Waiting for PT today. She refused the Mag Citrate and Decadron yesterday. The patient is very noncompliant and likes to self direct her care. REVIEW OF SYSTEMS: CONSTITUTIONAL: No night sweats. No fatigue, malaise, lethargy. No fever or chills. Weakness. HEENT: Eyes: No visual changes. No eye pain. No eye discharge. ENT: No runny nose. No epistaxis. No sinus pain. No odynophagia. No congestion. RESPIRATORY: No cough, no congestion. No hemoptysis. No shortness of breath. CARDIOVASCULAR: No angina symptoms. No CHF symptoms. No atypical chest pain for CAD. No palpitations. No orthopnea.. GASTROINTESTINAL: No abdominal pain. No nausea or vomiting. No diarrhea or cons tipation. No hematemesis. No hematochezia. GENITOURINARY: No urgency. No frequency. No dysuria. No hematuria. No obstructive symptoms. No discharge. No pain. No significant abnormal bleeding. MUSCULOSKELETAL: No musculoskeletal pain; no joint swelling. Bilateral knee pain. NEUROLOGICAL: Awake, alert, oriented to time, place and person. No headache. No neck pain. No syncope. No seizures. No dizziness. PSYCHIATRIC: Not anxious. No depression. No suicidal thoughts. No homicidal thoughts. SKIN: No rash. No lesions. No wounds. ENDOCRINE: No unexplained weight loss. No weight gain. HEMATOLOGIC/LYMPHATIC: No anemia. No purpura. No petechiae. No prolonged or excessive bleeding. No palpable lymph nodes. PHYSICAL EXAMINATION: GENERAL: The patient is awake, alert and oriented, lying in bed in no distress. VITAL SIGNS: Temperature 97.7 F, Pulse 78, Respiratory Rate 18, BP 137/72, Pulse Ox 93% HEENT: Head normocephalic, atraumatic. Eyes: Extraocular muscles are intact. Pupils are equal, round and reactive to light and accommodation. Ears: No lesions. Nose appeared normal. Throat: No exudate or erythema. NECK: Supple. No JVD, no carotid bruit. No lymphadenopathy or thyromegaly. LUNGS: Diminished breath sounds. Clear to auscultation. Percussion note normal. Chest symmetrical. HEART: S1, S2, no S3. No murmurs. No cyanosis or clubbing. No ascites. Pulses: Dorsalis pedis and posterior tibial pulses +1 to +2 both sides. ABDOMEN: Soft. Non-tender. Bowel sounds active. No CVA tenderness. No mass felt. EXTREMITIES: No edema. Full range of motion of all extremities, equal. NEUROLOGIC: No focal deficit. Cranial nerves II through XII are grossly intact. No headache, no double vision or headache. SKIN: Not dry. Intact. Turgor-normal. LYMPHATIC: No palpable lymph nodes/no lymphedema. MUSCULOSKELETAL: Normal joints with no swelling. Muscle tone is normal. LAB REVIEW: 09/14/20 04:45 09/14/20 04:45 09/14/20 04:45: Sodium 134.4 L, Potassium 3.74, Chloride 106.7, Carbon Dioxide 23.3, Anion Gap 8.14, BUN 17.0, Creatinine 0.68, Estimated GFR (MDRD) 86.00, BUN/Creatinine Ratio 25.00, Glucose 184.8 H, Calcium 9.77, Total Bilirubin 0.39, AST 24.9, ALT 17.0, Alkaline Phosphatase 165.4 H, Total Protein 6.58, Albumin 2.98 L, Globulin 3.60, Albumin/Globulin Ratio 0.82 09/14/20 04:45: WBC 8.30, RBC 3.40 L, Hgb 9.9 L, Hct 30.5 L, MCV 89.7, MCH 29.1, MCHC 32.5, RDW Coeff of Patsy 12.9, Plt Count 379, Immature Gran % (Auto) 0.6, Neut % (Auto) 58.1, Lymph % (Auto) 31.0, [place] % (Auto) 8.1, Eos % (Auto) 2.0, Baso % (Auto) 0.2, Neut # (Auto) 4.8, Lymph # (Auto) 2.6, [place] # (Auto) 0.7, Eos # (Auto) 0.2, Baso # (Auto) 0.0, Immature Gran # (Auto) 0.1 ASSESSMENT: Please see below. 1. UTI 2. Generalized weakness 3. Dehydration, resolved 4. Bilateral knee pain PLAN: 1. PT evaluation 2. 1cc Decadron IM 3. Continue Colace 4. Continue IV antibiotics pt eval Plan and coordination of the patient's care discussed in the presence of Tester Equipment and nurse. SCRIBED BY: MEGGAN WINKLER Test Engineer scribed while in presence of service performed by Dr. Siu/Mary Charlton APRN on 09/14/20 ([id number])
[2020-09-14] MEDS: [UNRECOGNIZED DRUG - OTHER] PO SCH (09:22)
[2020-09-14] MEDS: ROCEPHIN 1 GM/50 ML D5W 1 GM/50 ML BAG IV SCH (09:22)
[2020-09-14] MEDS: ASPIRIN CHEWABLE PO SCH (09:23)
[2020-09-14] MEDS: XANAX PO SCH ×2 (09:23→21:16)
[2020-09-14] MEDS: COZAAR PO SCH (09:23)
[2020-09-14] MEDS: COLACE PO SCH ×2 (09:23→21:16)
[2020-09-14] MEDS: LOVENOX SUBCUT SCH (09:23)
[2020-09-14] MEDS: NORCO 5-325 PO PRN ×2 (09:30→22:00)
--- NOTE | 2020-09-14 13:27 | RS.PTINEVL ---
Subjective - Patient information Date of Evaluation: 09/14/20 Usual Living Arrangement: With Spouse Medical History: Hypertension, Diabetes, Arthritis Medical History Comments:: General Anxiety Disorder, Asthma, Bronchitis, Irritable Bowel Syndrome, Obesity Surgical History Comments:: C section, Hysterectoy, bilateral knee partial joint replacements, left shoulder replacement, left foot surgery, right bunion surgery. Subjective Information/ Patient Comments:: Patient states she has not walked for 5 weeks. States she has billateral knee pain, left shoulder and wrist pain. States her son and had to use a front railroad car loader to get her from her home to a van. She lives with her spouse who has transferred her to and from the wheelchair. She expects to do better once she has the right knee replacement surgery and stay here for Swing bed before she returns home. Reports severe left wrist and bilateral knee pain during movement. - Level of function Abilities prior to this admission: Non ambulatory for 5 weeks. Reports that she required assistance with transfers. She had initially told hospital staff that she was non-weight bearing on the right knee. Current Level of Function: Partially Dependent Current Equipment Used at Home: Glucometer, walker Interventions - Objective Patient Orientation: Person, Place, Time, Situation Current Interventions: IV's Range of Motion - ROM Comments:: Bilateral hips limited by adipose tissue approximation, bilateral knee extension to full extension, Right knee to 90 degrees flexion, left to 95 degrees flexion. Reports pain with excessive knee flexion on the right. Muscle Strength - Muscle Strength Comments:: Bilateral LE strength at least 3+ to 4/5 throughout. Sensation - Sensation Right Lower Extremity Sensation: Intact/Normal Left Lower Extremity Sensation: Intact/Normal Balance - Sitting Balance and Reactions Static Sitting Balance: Good Dynamic Sitting Balance: Good - Standing Balance and Reactions Static Standing Balance: Poor Dynamic Standing Balance: Poor Functional Mobility - Bed Mobility Comments:: Patient does not attempt to help with bed mobility until given verbal cues to assist. TRIPLETT gave patient a leg er nurse to assist with moving her legs off the bed. She was able to do this easily and voiced no LE pain. Pt brought to sitting on EOB with mod-max assist of 2 with use of draw sheet. She is able to sit independently on the EOB. Chivo pad in chair for anticipated need to use the chivo lift to get the patient back to bed. Patient complains of knee pain with safety socks being applied to each foot. - Transfers Sit to Stand: Mod Assist, Max Assist, 2 person assist, Verbal Cues, Tactile Cues Stand to Sit: Mod Assist, Max Assist, 2 person assist, Verbal Cues, Tactile Cues Comments:: Patient initially states "I'm not going to stand" but did stand with mod-Max assist of 2 at standard walker at bed side. Requires instruction to push with the right UE from the bed. Patient demonstrates being unable to bear weight through her left wrist. Uses forearm on the walker. Bed moved and chair b rought up behind her for her to sit in. Upon sitting, patient hollared in pain due to knees being flexed more as she sat down. Had directed staff to move her foot out before sitting. Patient did not try to move her foot herself. - Safety Awareness Safety Awareness: Fair CLEMENCIA INDEX SCORE: NA Treatment time - Time with patient Length of Evaluation: 24 mins Total treatment time: 34 Assessment - Assessment Problem List:: Decreased level of function, Requires training/education, Decreased safety/Risk of falls, Pain limits previous level of function Rehab Potential: Fair Candidate for Swing Bed for Therapy Services?: Not a Candidate for Swing Bed at this time. Comments: Patient's potential at this time to make progress and gain more independence is limited by the fact that she has been non-ambulatory for the last 5 weeks, she reports multiple areas of pain, her pain and ability is inconsistent, and she is directing her care to others rather than doing it herself. Evaluation Complexity: HISTORY: High (Non ambulatory for 5 weeks, DM, HTN, bilateral knee pain, Obesity), EXAM OF BODY SYSTEMS: High, CLINICAL PRESENTATION: High, CLINICAL DECISION MAKING: High Patient's Goal(s): Patient's goal is to have her right knee replacement surgery. Short Term Goals GOAL #1: Bed mobility with mod Assist of one and VC's with use of leg er nurse. Goal to be met by: 09/15/20 GOAL #2: Sit <> stand transfers with mod Assist of 2. Goal to be met by: 09/15/20 GOAL #3: Demonstrate consistent use of RUE to push from chair/bed for sit to stand. Goal to be met by: 09/15/20 Custodial Goals GOAL #1: Bed mobility with min A of 1. Goal to be met by: 09/17/20 GOAL #2: Transfers with Mod assist of 2 for Bed<>chair. Goal to be met by: 09/17/20 Plan Plan of Care: Therapeutic EX, Therapeutic Activity, Self-Care/Home Management Frequency of Treatment: 1-2 X day, as tolerated Duration of Treatment: 2-3 Days Anticipated Discharge Destination: Home Treatment Diagnosis (ICD 10 Codes): Z74.0 Reduced mobility, M25.561 Right knee pain Has the Physician been added for Co-signature?: Yes
--- NOTE | 2020-09-14 14:04 | PN ---
DATE OF SERVICE: 09/14/20 SUBJECTIVE: The patient was seen and examined with the nurse practitioner. REVIEW OF SYSTEMS: CONSTITUTIONAL: No night sweats. No fatigue, malaise, lethargy. No fever or chills. HEENT: Eyes: No visual changes. No eye pain. No eye discharge. ENT: No runny nose. No epistaxis. No sinus pain. No sore throat. No odynophagia. No congestion. RESPIRATORY: No cough, no congestion. No hemoptysis. No shortness of breath. CARDIOVASCULAR: No angina symptoms. No CHF symptoms. No atypical chest pain for CAD. No palpitations. No PND. No orthopnea. GASTROINTESTINAL: No abdominal pain. No nausea or vomiting. No diarrhea or constipation. No hematemesis. No hematochezia. GENITOURINARY: No urgency. No frequency. No dysuria. No hematuria. No obstructive symptoms. No discharge. No pain. No significant abnormal bleeding. MUSCULOSKELETAL: No musculoskeletal pain; no joint swelling. NEUROLOGICAL: No headache. No neck pain. No syncope. No seizures. No dizziness. PSYCHIATRIC: Not anxious. No depression. No suicidal thoughts. No homicidal thoughts. SKIN: No rash. No lesions. No wounds. ENDOCRINE: No unexplained weight loss. No weight gain. HEMATOLOGIC/LYMPHATIC: No anemia. No purpura. No petechiae. No prolonged or excessive bleeding. No palpable lymph nodes. PHYSICAL EXAMINATION: HEENT: Head normocephalic, atraumatic. Eyes: Extraocular muscles are intact. Pupils are equal, round and reactive to light and accommodation. Ears: No lesions. Nose appeared normal. Throat: No exudate or erythema. NECK: Supple. No JVD, no carotid bruit. No lymphadenopathy or thyromegaly. LUNGS: Clear to auscultation. Percussion note normal. Chest symmetrical. HEART: S1, S2, no S3. No murmurs. No cyanosis or clubbing. No ascites. Pulses: Dorsalis pedis and posterior tibial pulses +1 to +2 bilaterally. ABDOMEN: Soft. Nontender. Bowel sounds active. No CVA tenderness. No mass felt. EXTREMITIES: No edema. Full range of motion of all extremities, equal. NEUROLOGIC: No focal deficit. Cranial nerves II through XII are grossly intact. No headache, no double vision or headache. SKIN: Not dry. Intact. Turgor - normal. LYMPHATIC: No palpable lymph nodes/no lymphedema. MUSCULOSKELETAL: Normal joints with no swelling. Muscle tone is normal. The patient's echo showed an LVH with enlarged LA cavity. Normal LV contractility noted. Explained about this finding. The patient may have to have Dobutamine stress echo prior to the surgery on the knee. Creatinine and BUN are normal. PLAN: She is continued on IV antibiotics for UTI. Condition is improving. TIME SPENT: More than 30 minutes. Plan and coordination of the patient's care discussed in the presence of nurse. DARCY
[2020-09-14] MEDS: DESYREL PO SCH (21:16)
[2020-09-14] MEDS: SINGULAIR PO SCH (21:16)
[2020-09-15] MEDS: PROTONIX PO SCH ×2 (05:30→16:48)
[2020-09-15 05:43] LABS: BASOPHILS % (AUTO) 0.3 % (0.0-3.0); EOSINOPHILS # (AUTO) 0.1 K/ul (0.0-0.7); EOSINOPHILS % (AUTO) 0.8 % (0.0-7.0); HEMATOCRIT 30.5 % (37.0-47.0); HEMOGLOBIN 9.9 g/dl (12.0-16.0); IMMATURE GRANULOCYTE # (AUTO) 0.1 (0.0-1.0); IMMATURE GRANULOCYTE % (AUTO) 0.8 % (0.0-5.0); LYMPHOCYTES # (AUTO) 2.5 K/uL (0.60-3.4); LYMPHOCYTES % (AUTO) 32.1 (10.0-50.0); MEAN CORPUSCULAR HEMOGLOBIN 29.3 pg (27.0-31.0); MEAN CORPUSCULAR HGB CONC 32.5 (31.8-35.4); MEAN CORPUSCULAR VOLUME 90.2 fl (81.0-99.0); MONOCYTES # (AUTO) 0.6 K/uL (0.4-2.0); MONOCYTES % (AUTO) 7.2 (0-10); NEUTROPHILS # (AUTO) 4.6 K/ul (2.0-6.9); NEUTROPHILS % (AUTO) 58.8 % (42.2-75.2); PLATELET COUNT 411 10^3/uL (140-440); RDW COEFFICIENT OF VARIATION 12.9 % (11.6-14.8); RED BLOOD COUNT 3.38 10^6/ul (4.20-5.40); WHITE BLOOD COUNT 7.88 K/ul (4.6-10.2)
[2020-09-15 06:01] LABS: ALANINE AMINOTRANSFERASE 17.2 U/L (0-35); ALBUMIN 2.92 g/dL (3.5-5.0); ALKALINE PHOSPHATASE 145.5 U/L (53-141); ASPARTATE AMINO TRANSFERASE 21.2 U/L (14-36); BILIRUBIN,TOTAL 0.3 mg/dL (0.2-1.3); BLOOD UREA NITROGEN 20.4 mg/dL (7-17); CALCIUM 9.79 mg/dL (8.4-10.2); CARBON DIOXIDE 24.7 mmol/L (22-30.0); CHLORIDE 105.6 mmol/L (98-107); CREATININE 0.62 mg/dL (0.60-1.30); GLUCOSE 215.5 mg/dL (74-106); POTASSIUM 3.48 mmol/L (3.5-5.1); SODIUM 136.1 mmol/L (134.5-145); TOTAL PROTEIN 6.32 g/dL (6.3-8.2)
[2020-09-15] MEDS: HUMULIN R SUBCUT PRN ×4 (06:14→20:49)
[2020-09-15] MEDS: XANAX PO SCH (08:11)
[2020-09-15] MEDS: COLACE PO SCH ×2 (08:11→20:49)
[2020-09-15] MEDS: COZAAR PO SCH (08:11)
[2020-09-15] MEDS: ASPIRIN CHEWABLE PO SCH (08:11)
[2020-09-15] MEDS: ROCEPHIN 1 GM/50 ML D5W 1 GM/50 ML BAG IV SCH (08:12)
[2020-09-15] MEDS: LOVENOX SUBCUT SCH (08:13)
[2020-09-15] MEDS: [UNRECOGNIZED DRUG - OTHER] PO SCH (08:22)
[2020-09-15] MEDS ORDERED: VENTOLIN HFA (PER PUFF-WITH SPACER) IH PRN ×2 (09:00→09:30)
[2020-09-15] MEDS: NORCO 5-325 PO PRN ×2 (09:24→21:54)
[2020-09-15] MEDS: SODIUM CHLORIDE 1,000 ML IV SCH (11:37)
[2020-09-15] MEDS ORDERED: ASTELIN 0.1% NAS PRN (12:30)
[2020-09-15] MEDS ORDERED: XANAX PO PRN (12:32)
[2020-09-15] MEDS: SINGULAIR PO SCH (20:49)
[2020-09-15] MEDS: DESYREL PO SCH (20:49)
[2020-09-16] MEDS: NORCO 5-325 PO PRN (03:53)
[2020-09-16 05:05] LABS: BASOPHILS % (AUTO) 0.4 % (0.0-3.0); EOSINOPHILS # (AUTO) 0.1 K/ul (0.0-0.7); EOSINOPHILS % (AUTO) 1.6 % (0.0-7.0); HEMATOCRIT 30.4 % (37.0-47.0); HEMOGLOBIN 9.9 g/dl (12.0-16.0); IMMATURE GRANULOCYTE # (AUTO) 0.1 (0.0-1.0); IMMATURE GRANULOCYTE % (AUTO) 0.6 % (0.0-5.0); LYMPHOCYTES # (AUTO) 2.8 K/uL (0.60-3.4); MEAN CORPUSCULAR HEMOGLOBIN 29.3 pg (27.0-31.0); MEAN CORPUSCULAR HGB CONC 32.6 (31.8-35.4); MEAN CORPUSCULAR VOLUME 89.9 fl (81.0-99.0); MONOCYTES # (AUTO) 0.6 K/uL (0.4-2.0); MONOCYTES % (AUTO) 7.5 (0-10); NEUTROPHILS # (AUTO) 4.5 K/ul (2.0-6.9); NEUTROPHILS % (AUTO) 54.9 % (42.2-75.2); PLATELET COUNT 382 10^3/uL (140-440); RED BLOOD COUNT 3.38 10^6/ul (4.20-5.40); WHITE BLOOD COUNT 8.11 K/ul (4.6-10.2)
[2020-09-16 05:20] LABS: ALANINE AMINOTRANSFERASE 17.7 U/L (0-35); ALBUMIN 2.96 g/dL (3.5-5.0); ALKALINE PHOSPHATASE 158.9 U/L (53-141); ASPARTATE AMINO TRANSFERASE 25.1 U/L (14-36); BILIRUBIN,TOTAL 0.37 mg/dL (0.2-1.3); CALCIUM 9.65 mg/dL (8.4-10.2); CARBON DIOXIDE 25.2 mmol/L (22-30.0); CHLORIDE 105.8 mmol/L (98-107); CREATININE 0.52 mg/dL (0.60-1.30); GLUCOSE 174.8 mg/dL (74-106); POTASSIUM 3.55 mmol/L (3.5-5.1); SODIUM 136.9 mmol/L (134.5-145); TOTAL PROTEIN 6.48 g/dL (6.3-8.2)
[2020-09-16] MEDS: HUMULIN R SUBCUT PRN ×2 (05:49→11:48)
[2020-09-16] MEDS: PROTONIX PO SCH (05:49)
--- NOTE | 2020-09-16 08:40 | ECHO2D ---
Date of Exam: 09/14/2020 Ordering Physician: DR. ROBERTO SIU Room #: 108 Reason for Echo: HTN, SOA M-Mode Normal Adult Results LV Dimensions Normal Adult Results AoV Opening excursions >1.6 >1.6 LVEDD-base- 3.5-5.8 5.1 Ao root dimensions 2.0-3.7 3.3 LVESD-base- 3.1-4.6 L. Atrium dimensions 1.9-3.8 5.0 Post. Wall thickness 0.8-1.1 1.1 IV septum (thickness) 0.7-1.2 1.3 Post. Wall excursion 0.72-1.3 NORMAL Septal motion NORMAL Systolic motion R. Ventricular cavity 1.5-2.0 3.5 LVEF 60% 61% Paradoxical septal wall motion NORMAL 2-D : 2-D M Mode Echocardiogram was performed using apical four chamber and left parasternal long and short axis views. Mitral, tricuspid and aortic valves appear to be normal. Contractility of the left ventricle seems to be normal, so is the cavity size. ENLARGED LEFT ATRIAL CAVITY SIZE. Aortic root appears to be normal. There is no pericardial effusion. There is no thrombus noted in the left ventricle or left atrial cavity. No mitral valve prolapse noted. M-MODE: MV: NORMAL AV: NORMAL TV: NORMAL PV: NORMAL CHAMBER SIZE: ENLARGED LEFT ATRIAL CAVITY WALL MOTION: NORMAL PERICARDIUM: NORMAL INTERPRETATION: 1. LEFT VENTRICULAR CONTRACTILITY 2. NORMAL LEFT VENTRICULAR CONTRACTILITY 3. NORMAL LEFT VENTRICLE CAVITY MTDD
[2020-09-16] MEDS ORDERED: ATROPINE SULFATE PFS IVP STA (09:12)
[2020-09-16] MEDS ORDERED: DOBUTAMINE 500 MG-D5W 250 ML 500 MG/250 ML BAG IV SCH (09:15)
--- NOTE | 2020-09-16 09:16 | PCM.PROG ---
Attending Provider: ATTENDING PROVIDER: Dr. ROBERTO SIU This patient is seen with Mary Charlton, Nurse Practitioner. DATE OF SERVICE: 09/16/20 SUBJECTIVE: This 70 year old /WHITE F was hospitalized 09/09/20. The patient states that her knees have been hurting through the night. Yesterday was requiring use of Chivo lift. The lift released and she was placed on the bed from about 5 inches. This morning she denies any other pain besides bilateral knee pain. Ready to go home. The patient is very uncooperative with treatment plan and PT. REVIEW OF SYSTEMS: CONSTITUTIONAL: No night sweats. No fatigue, malaise, lethargy. No fever or chills. HEENT: Eyes: No visual changes. No eye pain. No eye discharge. ENT: No runny nose. No epistaxis. No sinus pain. No odynophagia. No congestion. RESPIRATORY: No cough, no congestion. No hemoptysis. No shortness of breath. CARDIOVASCULAR: No angina symptoms. No CHF symptoms. No atypical chest pain for CAD. No palpitations. No orthopnea.. GASTROINTESTINAL: No abdominal pain. No nausea or vomiting. No diarrhea or constipation. No hematemesis. No hematochezia. GENITOURINARY: No urgency. No frequency. No dysuria. No hematuria. No obstructive symptoms. No discharge. No pain. No significant abnormal bleeding. MUSCULOSKELETAL: No musculoskeletal pain; no joint swelling. Knee pain. Refuses to bear weight. NEUROLOGICAL: Awake, alert, oriented to time, place and person. No headache. No neck pain. No syncope. No seizures. No dizziness. PSYCHIATRIC: Not anxious. No depression. No suicidal thoughts. No homicidal thoughts. SKIN: No rash. No lesions. No wounds. ENDOCRINE: No unexplained weight loss. No weight gain. HEMATOLOGIC/LYMPHATIC: No anemia. No purpura. No petechiae. No prolonged or excessive bleeding. No palpable lymph nodes. PHYSICAL EXAMINATION: GENERAL: The patient is awake, alert and oriented, lying in bed in no distress. VITAL SIGNS: Temperature 97.6 F, Pulse 79, Respiratory Rate 18, BP 137/71, Pulse Ox 95% HEENT: Head normocephalic, atraumatic. Eyes: Extraocular muscles are intact. Pupils are equal, round and reactive to light and accommodation. Ears: No lesions. Nose appeared normal. Throat: No exudate or erythema. NECK: Supple. No JVD, no carotid bruit. No lymphadenopathy or thyromegaly. LUNGS: Diminished breath sounds. Clear to auscultation. Percussion note normal. Chest symmetrical. HEART: S1, S2, no S3. No murmurs. No cyanosis or clubbing. No ascites. Pulses: Dorsalis pedis and posterior tibial pulses +1 to +2 both sides. ABDOMEN: Soft. Non-tender. Bowel sounds active. No CVA tenderness. No mass felt. EXTREMITIES: No edema. Full range of motion of all extremities, equal. NEUROLOGIC: No focal deficit. Cranial nerves II through XII are grossly intact. No headache, no double vision or headache. SKIN: Not dry. Intact. Turgor-normal. LYMPHATIC: No palpable lymph nodes/no lymphedema. MUSCULOSKELETAL: Normal joints with no swelling. Muscle tone is normal. LAB REVIEW: 09/16/20 04:56 09/16/20 04:56 09/16/20 04:56: Sodium 136.9, Potassium 3.55, Chloride 105.8, Carbon Dioxide 25.2, Anion Gap 9.45, BUN 16.0, Creatinine 0.52 L, Estimated GFR (MDRD) 117.00, BUN/Creatinine Ratio 30.76, Glucose 174.8 H, Calcium 9.65, Total Bilirubin 0.37, AST 25.1, ALT 17.7, Alkaline Phosphatase 158.9 H, Total Protein 6.48, Albumin 2.96 L, Globulin 3.52, Albumin/Globulin Ratio 0.84 09/16/20 04:56: WBC 8.11, RBC 3.38 L, Hgb 9.9 L, Hct 30.4 L, MCV 89.9, MCH 29.3, MCHC 32.6, RDW Coeff of Patsy 13.0, Plt Count 382, Immature Gran % (Auto) 0.6, Neut % (Auto) 54.9, Lymph % (Auto) 35.0, [place] % (Auto) 7.5, Eos % (Auto) 1.6, Baso % (Auto) 0.4, Neut # (Auto) 4.5, Lymph # (Auto) 2.8, [place] # (Auto) 0.6, Eos # (Auto) 0.1, Baso # (Auto) 0.0, Immature Gran # (Auto) 0.1 ASSESSMENT: Please see below. 1. Bilateral knee pain 2. Gait disturbance 3. Generalized weakness 4. Left wrist osteoarthritis 5. Obesity 6. Diabetes Mellitus type 2 7. History of acute renal failure, resolved 8. Noncompliance of diet, lifestyle and medications. PLAN: 1. Will discharge home 2. The patient insists on having and son available for transferring from wheelchair to car and then from car to home. 3. Order for wheelchair and hospital bed 4. Resume home medications. Plan and coordination of the patient's care discussed in the presence of Print Buyer and nurse. SCRIBED BY: Asiya FERNANDEZist scribed while in presence of service performed by Dr. Siu/Mary Charlton APRN on 09/16/20 ([id number])
[2020-09-16] MEDS: COLACE PO SCH (09:33)
[2020-09-16] MEDS: COZAAR PO SCH (09:34)
[2020-09-16] MEDS: ASPIRIN CHEWABLE PO SCH (09:34)
[2020-09-16] MEDS: [UNRECOGNIZED DRUG - OTHER] PO SCH (09:36)
[2020-09-16] MEDS: LOVENOX SUBCUT SCH (09:38)
--- NOTE | 2020-09-16 11:34 | PN ---
DATE OF SERVICE: 09/15/20 SUBJECTIVE: 70-year-old white female hospitalized with acute renal failure with dehydration. The patient has improved. REVIEW OF SYSTEMS: CONSTITUTIONAL: No night sweats. No fatigue, malaise, lethargy. No fever or chills. HEENT: Eyes: No visual changes. No eye pain. No eye discharge. ENT: No runny nose. No epistaxis. No sinus pain. No sore throat. No odynophagia. No congestion. RESPIRATORY: No cough, no congestion. No hemoptysis. No shortness of breath. CARDIOVASCULAR: No angina symptoms. No CHF symptoms. No atypical chest pain for CAD. No palpitations. No PND. No orthopnea. GASTROINTESTINAL: No abdominal pain. No nausea or vomiting. No diarrhea or constipation. No hematemesis. No hematochezia. GENITOURINARY: No urgency. No frequency. No dysuria. No hematuria. No obstructive symptoms. No discharge. No pain. No significant abnormal bleeding. MUSCULOSKELETAL: Right knee pain. NEUROLOGICAL: No headache. No neck pain. No syncope. No seizures. No dizziness. PSYCHIATRIC: Not anxious. No depression. No suicidal thoughts. No homicidal thoughts. SKIN: No rash. No lesions. No wounds. ENDOCRINE: No unexplained weight loss. No weight gain. HEMATOLOGIC/LYMPHATIC: No anemia. No purpura. No petechiae. No prolonged or excessive bleeding. No palpable lymph nodes. PHYSICAL EXAMINATION: VITAL SIGNS: Temperature 97.8, pulse 75, respiratory rate 16, BP 150/77, pulse ox 97%. HEENT: Head normocephalic, atraumatic. Eyes: Extraocular muscles are intact. Pupils are equal, round and reactive to light and accommodation. Ears: No lesions. Nose appeared normal. Throat: No exudate or erythema. NECK: Supple. No JVD, no carotid bruit. No lymphadenopathy or thyromegaly. LUNGS: Clear to auscultation. Percussion note normal. Chest symmetrical. HEART: S1, S2, no S3. No murmurs. No cyanosis or clubbing. No ascites. Pulses: Dorsalis pedis and posterior tibial pulses +1 to +2 bilaterally. ABDOMEN: Soft. Nontender. Bowel sounds active. No CVA tenderness. No mass felt. EXTREMITIES: No edema. Full range of motion of all extremities, equal. NEUROLOGIC: No focal deficit. Cranial nerves II through XII are grossly intact. No headache, no double vision or headache. SKIN: Not dry. Intact. Turgor - normal. LYMPHATIC: No palpable lymph nodes/no lymphedema. MUSCULOSKELETAL: Normal joints with no swelling. Muscle tone is normal. LABS: Hemoglobin 9.9, hematocrit 30, WBC 7,000, normal differential. Creatinine 0.6, BUN 20, potassium 3.4. ASSESSMENT: 1. Acute renal failure seems to have resolved. 2. Right knee pain. 3. Diabetes mellitus. The patient had three huge bowel movements. She was constipated. She is going to have an inhaler because she had tightness in the chest. She has history of asthma. The patient's BMI is 39. She is advised to lose weight. She is going to be having Dobutamine Stress Echo in the morning to clear for her surgery. TIME SPENT: More than 30 minutes. Plan and coordination of the patient's care discussed in the presence of nurse. DARCY
[2020-09-16] MEDS ORDERED: ATROPINE SULFATE PFS ONE (11:52)
--- NOTE | 2020-09-16 13:25 | CM.DICTOOL ---
ADMISSION: 09/09/20 20:23 DISCHARGE: SEPTEMBER 16, 2020 DATE OF SERVICE: 09/16/20 FINAL DIAGNOSIS ACUTE RENAL FAILURE (RESOLVED) LIKELY CAUSES COMBINATION OF MELOXICAM, NON SEROIDIAL ANTINFLAMMATORY WITH OZEMPIC AND METFORMIN CAUSING ABDOMINAL DISCOMFORT,DIARRHEA, AND NAUSEA , IMPROVED HISTORY OF DIABETES MELLITUS MORBID OBESITY WITH HAVING BMI OF 45 UTI GENERALIZED WEAKNESS* DEHYDRATION, IMPROVED* RT KNEE PAIN CAUSING IMMOBILITY HX : DYSLIPIDEMIA HYPERTENSION METABOLIC SYNDROME GENERALIZED ANXIETY DISORDER STATUS POST RIGHT KNEE REPLACEMENT- ( PARTIAL) STATUS POST LEFT SHOULDER REPLACEMENT ASTHMATIC BRONCHITIS LEFT FOOT SURGERY, LEFT BUNIONECTOMY ALL DONE BY DR. TELLO NONCOMPLIANCE OF LIFESTYLE AND RECOMMENDATIONS LAST VITALS Temp Pulse Resp BP Pulse Ox 97.6 F 79 18 137/71 95 09/16/20 05:44 09/16/20 05:44 09/16/20 05:44 09/16/20 05:44 09/16/20 05:44 TAKE THESE MEDICATIONS AT HOME Hydrocodone Bitart/Acetaminophen (Hydrocodone Bit/Acetaminophen 5/325 Mg Tablet) 1 tab PO Q6H PRN PRN Reason: Pain Last Admin: 09/16/20 03:53 Dose: 1 tab Documented by: Albuterol Sulfate (Albuterol Sulfate 0.042% Vial.Neb) 1.25 mg NEB TID PRN PRN Reason: dyspnea Albuterol Sulfate (Albuterol Sulfate (Ventolin Hfa) 18 Gm 1 Puff With Spacer) 1 puff IH TID PRN PRN Reason: wheezing and dyspnea Last Admin: 09/15/20 09:27 Dose: 1 puff Documented by: Alprazolam (Alprazolam 0.5 Mg Tablet) 0.5 mg PO BID PRN PRN Reason: Anxiety Last Admin: 09/15/20 21:54 Dose: 0.5 mg Documented by: Aspirin (Aspirin 81 Mg Tab.Chew) 81 mg PO DAILYWM YUDI Last Admin: 09/16/20 09:34 Dose: 81 mg Documented by: Azelastine HCl (Azelastine Hcl 30 Ml Nasal [place]) 1 spray MYLA BID PRN PRN Reason: Dry Nasal [place] Losartan Potassium (Losartan Potassium 100 Mg Tablet) 100 mg PO DAILY YUDI Last Admin: 09/16/20 09:34 Dose: 100 mg Documented by: Montelukast Sodium (Montelukast Sodium 10 Mg Tablet) 10 mg PO BEDTIME YUDI Last Admin: 09/15/20 20:49 Dose: 10 mg Documented by: Non-Formulary Medication (L.Rhamn A-191-L.Ac-B.Monica-B.John [Probiotic]) 2 cap PO DAILY [facility] Last Admin: 09/16/20 09:36 Dose: Not Given Documented by: Pantoprazole Sodium (Pantoprazole Sodium 40 Mg Tablet.) 40 mg PO DAILYAC [facility] Last Admin: 09/16/20 05:49 Dose: 40 mg Documented by: Trazodone HCl (Trazodone Hcl 50 Mg Tablet) 50 mg PO BEDTIME [facility] Last Admin: 09/15/20 20:49 Dose: 50 mg Documented by: SIMVASTATIN 40 MG PO DAILY OMEGA -3 FATTY ACIDS/ FISH OIL 1 CAP PO BID MULTIVITAMIN 1 TABLET PO BID METFORMIN 1000 MG PO IN THE AM, 2000 MG PO AT BEDTIME HYDROCHLOROTHIAZIDE 25 MG PO DAILY GLIPIZIDE 10 MG PO BID JARDIANCE 25 MG PO DAILY ZYRTEC 10 MG PO BID ALLERGIES codeine Allergy (Mild, Verified 08/02/20 10:48) itch DISCONTINUED MEDICATIONS METRONIDAZOLE MELOXICAM HYDROCODONE/ APAP 5/325 MG BID NEW PRESCRIPTIONS: HYDROCODONE/ APAP 5/325 MG PO EVERY 6 HOURS PRN FOR MODERATE PAIN SMOKING: N/A DISEASE SPECIFIC EDUCATION: RT KNEE PAIN SAFETY WITH TRANSFERS FALL PRECAUTIONS UTI KIDNEY INSUFFICIENCY COVID - 19 LAB REVIEW: 09/16/20 04:56 09/16/20 04:56 09/16/20 04:56: Sodium 136.9, Potassium 3.55, Chloride 105.8, Carbon Dioxide 25.2, Anion Gap 9.45, BUN 16.0, Creatinine 0.52 L, Estimated GFR (MDRD) 117.00, BUN/Creatinine Ratio 30.76, Glucose 174.8 H, Calcium 9.65, Total Bilirubin 0.37, AST 25.1, ALT 17.7, Alkaline Phosphatase 158.9 H, Total Protein 6.48, Albumin 2.96 L, Globulin 3.52, Albumin/Globulin Ratio 0.84 09/16/20 04:56: WBC 8.11, RBC 3.38 L, Hgb 9.9 L, Hct 30.4 L, MCV 89.9, MCH 29.3, MCHC 32.6, RDW Coeff of Patsy 13.0, Plt Count 382, Immature Gran % (Auto) 0.6, Neut % (Auto) 54.9, Lymph % (Auto) 35.0, [place] % (Auto) 7.5, Eos % (Auto) 1.6, Baso % (Auto) 0.4, Neut # (Auto) 4.5, Lymph # (Auto) 2.8, [place] # (Auto) 0.6, Eos # (Auto) 0.1, Baso # (Auto) 0.0, Immature Gran # (Auto) 0.1 PLAN: DISCHARGE: HOME TODAY, SEPTEMBER 16, 2020 WITH [facility]: [phone]; PT AND OT. [facility]: [phone] HOSPITAL BED, W/C,GAIT BELT AND GTHW-MRG-UAY TABLE. DIET: 2000 ADA ACTIVITY: USE WHEELCHAIR, TRANSFER WITH GAIT BELT AND ASSIST OF 2-3 INDIVIDUALS. USE HOSPITAL BED FOR BED MOBILIZATION/TURNING AND REPOSITIONING. MD FOLLOW UP: DR. SIU/ TIGRE EDMONDSON APRN/ TIM RUBALCAVA APRN IN THE OFFICE ON Sunday09/21/2020 @ 8295 ( APPOINTMENT MADE PRIOR TO HOSPITALIZATION) DR. MENDOZA WITH [facility], CALL AND MAKE APPOINTMENT [phone] EXTENSION 1919 CODE STATUS: FULL CODE MRS JIMENEZ IS ALERT AND ORIENTED X 4. SHE DOES HAVE SOME ANXIETY REGARDING HER HEALTH CONDITION. SHE HAS PAIN TO BILATERAL KNEES, LT SHOULDER, LT WRIST AND LOWER BACK. HYDROCODONE HAS BEEN EFFECTIVE. SHE REPORTS ALL AREAS OF PAIN HAVE IMPROVED. SKIN IS WARM, DRY AND INTACT. SHE HAS BEEN GETTING UP WITH ASSIST OF THERAPY DEPARTMENT 2-3 STAFF MEMBERS AND HAS TAKEN STEPS TO BEDSIDE CHAIR. NUTRITIONAL AND FLUID INTAKE ARE GOOD. SHE IS TO FOLLOW UP WITH DR. MENDOZA REGARDING RT KNEE SURGERY. WHEEL CHAIR, HOSPITAL BED, OVER-THE- BED TABLE AND A LARGE GAIT BELT ORDERED FROM [facility] THE [facility] IN [place]. DANNIE AT [facility] HAS CONFIRMED THAT A PT AND OT ALEJANDRA VISIT HER ONCE SHE IS HOME. CONTINENT OF BOWEL AND BLADDER. LAST BM 09/16/2020. LIVES WITH . MD TIGRE SPIVEY APRN ALYCE HANNAN, APRN
[2020-09-16] MEDS: ROCEPHIN 1 GM/50 ML D5W 1 GM/50 ML BAG IV SCH (13:52)
[2020-09-16 14:13] VITALS: BP 158/81; TEMP 97.9
--- NOTE | 2020-09-17 11:08 | DOBSTECHO ---
Date of Test: 09/16/2020 Ordering Physician: DR. ROBERTO SIU Occupation: RETIRED Smoking History: NONE Reason for Examination: HTN, DM, SOB, SURGICAL CLEARANCE Current Medications: ALBUTEROL, XANAX, LOVENOX, NORCO, HUMULIN, COZAAR, SINGULAIR, ZOFRAN, PROTONIX Height: 65" Weight: 233 LBS Target Heart Rate: 129/152 S-T Segment Stage Time HR BPM BP MMHG Rhythm +/- Elevation Depression Symptoms Control Sitting 78 132/60 SR X NONE Dobutamine 250mg/D5W 5cmg/KG/mn 10cmg/KG/mn 3" 91 164/72 SR X NONE 15cmg/KG/mn 2" 94 174/68 SR X NONE 20cmg/KG/mn 1:48 146 182/60 SR X NONE 25cmg/KG/mn 30cmg/KG/mn 35cmg/KG/mn 40cmg/KG/mn 3" MIN POST INFUSION 118 168/60 SR X NONE 6" MIN POST INFUSION 10" 101 92 142/58 SR SR X X NONE NONE DURATION OF INFUSION 6:48 MAXIMUM HEART RATE REACHED 146 BPM Interpretation: 1. NO EVIDENCE OF ISCHEMIA BY ST-T WAVE 2. NO CHEST PAIN OR DISCOMFORT NORMAL LEFT VENTRICULAR CONTRACTILITY--RESTING AND WITH DOBUTAMINE INFUSION BY ECHO MTDD
--- NOTE | 2020-09-17 11:11 | ECHOSTRESS ---
Date of Exam: 09/16/2020 Ordering Physician: DR. ROBEROT SIU Reason for Echo: HTN, DM, SOB, SURGICAL CLEARANCE, DOBUTAMINE STRESS--NO ISCHEMIA M-Mode Normal Adult Results LV Dimensions Normal Adult Results AoV Opening excursions >1.6 LVEDD-base- 3.5-5.8 Ao root dimensions 2.0-3.7 LVESD-base- 3.1-4.6 L. Atrium dimensions 1.9-3.8 Post. Wall thickness 0.8-1.1 IV septum (thickness) 0.7-1.2 Post. Wall excursion 0.72-1.3 Septal motion Systolic motion R. Ventricular cavity 1.5-2.0 LVEF 60% Paradoxical septal wall motion 2-D: NORMAL LEFT VENTRICULAR CONTRACTILITY--RESTING AND WITH DOBUTAMINE INFUSION M-MODE: MV: AV: TV: PV: CHAMBER SIZE: WALL MOTION: NORMAL LEFT VENTRICULAR CONTRACTILITY--RESTING AND WITH DOBUTAMINE INFUSION PERICARDIUM: INTERPRETATION: 1. NORMAL LEFT VENTRICULAR CONTRACTILITY--RESTING AND WITH [facility]BUT[facility]INE [facility]FUSION [facility]
--- NOTE | 2020-09-17 14:07 | PN ---
DATE OF SERVICE: 09/16/20 - DISCHARGE NOTE SUBJECTIVE: The patient was seen and examined with the nurse practitioner. She is feeling a lot better, no evidence of coronary insufficiency. She is cheerful. The patient continues to have right knee pain. PHYSICAL EXAMINATION: HEENT: Head normocephalic, atraumatic. Eyes: Extraocular muscles are intact. Pupils are equal, round and reactive to light and accommodation. Ears: No lesions. Nose appeared normal. Throat: No exudate or erythema. NECK: Supple. No JVD, no carotid bruit. No lymphadenopathy or thyromegaly. LUNGS: Decreased breath sounds but clear to auscultation. Percussion note normal. Chest symmetrical. HEART: S1, S2, no S3. No murmurs. No cyanosis or clubbing. No ascites. Pulses: Dorsalis pedis and posterior tibial pulses +1 to +2 bilaterally. ABDOMEN: Soft. Nontender. Bowel sounds active. No CVA tenderness. No mass felt. EXTREMITIES: No edema. Full range of motion of all extremities, equal. NEUROLOGIC: No focal deficit. Cranial nerves II through XII are grossly intact. No headache, no double vision or headache. SKIN: Not dry. Intact. Turgor - normal. LYMPHATIC: No palpable lymph nodes/no lymphedema. MUSCULOSKELETAL: Normal joints with no swelling. Muscle tone is normal. CONDITION: Stable TIME SPENT: More than 30 minutes. Plan and coordination of the patient's care discussed in the presence of nurse. DARCY
--- NOTE | 2020-09-17 14:34 | DS ---
DATE OF SERVICE: 09/16/20 FINAL DIAGNOSIS: 1. ACUTE RENAL FAILURE (RESOLVED) LIKELY CAUSES COMBINATION OF MELOXICAM, NONSTEROIDIAL ANTINFLAMMATORY WITH OZEMPIC AND METFORMIN CAUSING ABDOMINAL DISCOMFORT, DIARRHEA AND NAUSEA, IMPROVED. 2. HISTORY OF DIABETES MELLITUS 3. MORBID OBESITY WITH HAVING BMI OF 45 4. UTI 5. GENERALIZED WEAKNESS* 6. DEHYDRATION, IMPROVED* 7. RT KNEE PAIN CAUSING IMMOBILITY HX: 8. DYSLIPIDEMIA 9. HYPERTENSION 10. METABOLIC SYNDROME 11. GENERALIZED ANXIETY DISORDER 12. STATUS POST RIGHT KNEE REPLACEMENT- (PARTIAL) 13. STATUS POST LEFT SHOULDER REPLACEMENT 14. ASTHMATIC BRONCHITIS 15. LEFT FOOT SURGERY, LEFT BUNIONECTOMY ALL DONE BY DR. TELLO 16. NONCOMPLIANCE OF LIFESTYLE AND RECOMMENDATIONS LAST VITALS Temp Pulse Resp BP Pulse Ox 97.6 F 79 18 137/71 95 09/16/20 05:44 09/16/20 05:44 09/16/20 05:44 09/16/20 05:44 09/16/20 05:44 DISCHARGE INSTRUCTIONS: 1. HOME TODAY, SEPTEMBER 16, 2020, WITH [facility]: [phone]; PT AND OT. [facility]: [phone] HOSPITAL BED, W/C,GAIT BELT AND GCTA-LDP-UEO TABLE. 2. MD FOLLOW UP: DR. SIU/TIGRE EDMONDSON APRN/TIM RUBALCAVA APRN IN THE OFFICE ON Sunday09/21/2020 @ 1556 (APPOINTMENT MADE PRIOR TO HOSPITALIZATION. DR. MENDOZA WITH [facility], CALL AND MAKE APPOINTMENT [phone] EXTENSION 2621. MEDICATIONS AT DISCHARGE: Hydrocodone Bitart/Acetaminophen (Hydrocodone Bit/Acetaminophen 5/325 Mg Tablet) 1 tab PO Q6H PRN PRN Reason: Pain Last Admin: 09/16/20 03:53 Dose: 1 tab Documented by: Albuterol Sulfate (Albuterol Sulfate 0.042% Vial.Neb) 1.25 mg NEB TID PRN PRN Reason: dyspnea Albuterol Sulfate (Albuterol Sulfate (Ventolin Hfa) 18 Gm 1 Puff With Spacer) 1 puff IH TID PRN PRN Reason: wheezing and dyspnea Last Admin: 09/15/20 09:27 Dose: 1 puff Documented by: Alprazolam (Alprazolam 0.5 Mg Tablet) 0.5 mg PO BID PRN PRN Reason: Anxiety Last Admin: 09/15/20 21:54 Dose: 0.5 mg Documented by: Aspirin (Aspirin 81 Mg Tab.Chew) 81 mg PO DAILYWM [facility] Last Admin: 09/16/20 09:34 Dose: 81 mg Documented by: Azelastine HCl (Azelastine Hcl 30 Ml Nasal [place]) 1 spray MYLA BID PRN PRN Reason: Dry Nasal [place] Losartan Potassium (Losartan Potassium 100 Mg Tablet) 100 mg PO DAILY [facility] Last Admin: 09/16/20 09:34 Dose: 100 mg Documented by: Montelukast Sodium (Montelukast Sodium 10 Mg Tablet) 10 mg PO BEDTIME [facility] Last Admin: 09/15/20 20:49 Dose: 10 mg Documented by: Non-Formulary Medication (Livan A-191-L.Ac-B.Monica-B.John ) 2 cap PO DAILY [facility] Last Admin: 09/16/20 09:36 Dose: Not Given Documented by: Pantoprazole Sodium (Pantoprazole Sodium 40 Mg Tablet.) 40 mg PO DAILYAC [facility] Last Admin: 09/16/20 05:49 Dose: 40 mg Documented by: Trazodone HCl (Trazodone Hcl 50 Mg Tablet) 50 mg PO BEDTIME [facility] Last Admin: 09/15/20 20:49 Dose: 50 mg Documented by: SIMVASTATIN 40 MG PO DAILY OMEGA -3 FATTY ACIDS/ FISH OIL 1 CAP PO BID MULTIVITAMIN 1 TABLET PO BID METFORMIN 1000 MG PO IN THE AM, 2000 MG PO AT BEDTIME HYDROCHLOROTHIAZIDE 25 MG PO DAILY GLIPIZIDE 10 MG PO BID JARDIANCE 25 MG PO DAILY ZYRTEC 10 MG PO BID NEW PRESCRIPTIONS: HYDROCODONE/ APAP 5/325 MG PO EVERY 6 HOURS PRN FOR MODERATE PAIN DISCONTINUED MEDICATIONS: METRONIDAZOLE MELOXICAM HYDROCODONE/APAP 5/325 MG BID DIET INSTRUCTIONS: 2000 ADA ACTIVITY: USE WHEELCHAIR, TRANSFER WITH GAIT BELT AND ASSIST OF 2-3 INDIVIDUALS. USE HOSPITAL BED FOR BED MOBILIZATION/TURNING AND REPOSITIONING. SMOKING: N/A DISEASE SPECIFIC EDUCATION: RT KNEE PAIN SAFETY WITH TRANSFERS FALL PRECAUTIONS UTI KIDNEY INSUFFICIENCY COVID -19 HOSPITAL COURSE: Ms. Bruno was hospitalized with acute renal failure. The acute renal failure was in part because the patient had acute gastritis, diabetes mellitus with a combination of having been on Ozempic with side effects and had been mixed with viral syndrome and Meloxicam and Metformin. The patient was taken off the medication, put on IV fluids and Protonix. Her condition slowly improved and now her creatinine is 0.8, BUN 15, GFR of more than 60 cc/min. On admission, the patient's creatinine was 2.9 with BUN of 45, GFR of 20. The patient also has anemia, could have been result of gastritis. There is no evidence of active GI bleed. She was advised to take Protonix. Hemoglobin use to be 15 with hematocrit of 45. At the time of discharge, the patient's hemoglobin is close to 10 with hematocrit of 30. The patient's cardiac workup with echo showed LVH with normal LV contractility. Stress echo was negative for ischemia. The patient has morbid obesity with history of diabetes mellitus. Cardiovascular status is stable. The patient has history of bronchial asthma with FEV1 of 61% of normal predicted with mild to moderate restrictive lung disease. At the present time, the patient is medically stable to undergo surgery. The patient is discharged home and will be seen by Dr. Garcia in the office in 3 to 4 days. Condition at time of discharge stable. TIME SPENT: More than 60 minutes. MTDD
--- NOTE | 2020-09-17 14:39 | PN ---
BILLING 09/09/20 ADMISSION DAY LEVEL 5 09/10/20 EXTENSIVE 09/11/20 INTERMEDIATE 09/12/20 INTERMEDIATE 09/13/20 INTERMEDIATE 09/14/20 INTERMEDIATE 09/15/20 INTERMEDIATE 09/16/20 DISCHARGE MTDD
--- NOTE | 2020-09-20 10:12 | OTDC ---
Date of Evaluation:09/09/20 Diagnosis:[diarrhea, dehydration, weakness] Number of visits:[] Last Date of Service:[09/16/20] Reason For Discharge:[Pt discharged from OT due to discharge from hospital.] Discharge Summary:[Pt discharged to home with home health. Pt to have knee surgery soon.] DARCY
== END 2020-09-16 15:00 | disposition home health service (06) | DRG 948 ==
LOC: ED 16:30 → MEDSURG A 20:23
PROVIDERS: ADMIT Internal Medicine; ATTEND Internal Medicine
DX: I10 Essential (primary) hypertension; Z20.822 Contact with and (suspected) exposure to COVID-19; M19.032 Primary osteoarthritis, left wrist; E66.01 Morbid (severe) obesity due to excess calories; R53.1 Weakness; D64.9 Anemia, unspecified; N39.0 Urinary tract infection, site not specified; M25.562 Pain in left knee; R10.9 Unspecified abdominal pain; M25.561 Pain in right knee; E86.0 Dehydration; R26.9 Unspecified abnormalities of gait and mobility; R19.7 Diarrhea, unspecified; F41.1 Generalized anxiety disorder